=== PATIENT | female | born 1945 | race Caucasian/White ===

== ENCOUNTER 2020-02-11 13:27 | Inpatient (IN) | payer OTHER ==
[2020-02-11 15:33] LABS: BASO % 0.2 % (0-2.0); EOS % 0.3 % (0-4.5); HEMATOCRIT 25.3 % (32.4-45.2); LYMPH % 5.5 % (8-40); MCH 26.8 pg (25.7-33.7); MCHC 31.7 g/dl (32.0-36.0); MEAN CELL VOLUME 84.3 fl (80-96); MEAN PLT VOLUME 7.2 fl (7.5-11.1); MONO % 7.4 % (3.8-10.2); NEUT % 86.6 % (42.8-82.8); PLATELET COUNT 290 K/MM3 (134-434); RDW 16.9 % (11.6-15.6); WHITE BLOOD COUNT 6.1 K/mm3 (4.0-10.0)
[2020-02-11 15:38] LABS: EPI CELLS 4 /uL (0-25.1); HYALINE CASTS 0 /uL (0-3.1); URINE APPEARANCE CLEAR; URINE BACTERIA 177 /uL (0-1359); URINE BILIRUBIN NEGATIVE (NEGATIVE); URINE COLOR YELLOW; URINE GLUCOSE (UA) NEGATIVE (NEGATIVE); URINE KETONE NEGATIVE (NEGATIVE); URINE LEUK ESTERASE NEGATIVE (NEGATIVE); URINE NITRITE NEGATIVE (NEGATIVE); URINE PROTEIN NEGATIVE (NEGATIVE); URINE RBC 28 /uL (0-23.9); URINE UROBILINOGEN 0.2 mg/dL (0.2-1.0); URINE WBC 3 /uL (0-25.8)
[2020-02-11 15:44] LABS: PROTHROMBIN TIME (PATIENT) 93.4 SEC (9.7-13.0)
[2020-02-11 15:47] LABS: ACTIVATED PTT 56.2 SECONDS (25.2-36.5)
[2020-02-11 15:53] LABS: INR 8.07 (0.83-1.09)
[2020-02-11 16:10] LABS: POTASSIUM 4.6 mmol/L (3.5-5.1)
[2020-02-11 16:13] LABS: ALBUMIN 2.8 g/dl (3.4-5.0); BLOOD UREA NITROGEN 25.5 mg/dL (7-18); CALCIUM 8.6 mg/dL (8.5-10.1)
[2020-02-11 16:17] LABS: CREATININE 0.8 mg/dL (0.55-1.3)
[2020-02-11 16:18] LABS: BILIRUBIN,TOTAL 0.8 mg/dL (0.2-1); TOT PROT 6.4 g/dl (6.4-8.2)
[2020-02-11] MEDS ORDERED: FUROSEMIDE 100 MG/10 ML INJECTABLE VIAL IVPB ONE (16:47)
[2020-02-11] MEDS ORDERED: FUROSEMIDE 40 MG/4 ML INJECTABLE VIAL ONE (17:19)
[2020-02-11] MEDS ORDERED: DOXYCYCLINE HYCLATE 100 MG CAPSULE PO ONE ×2 (18:12→18:46)
[2020-02-11] MEDS: INSULIN SLIDING SCALE (NOVOLOG) 1 VIAL SQ SCH (22:21)
[2020-02-11] MEDS ORDERED: PANTOPRAZOLE SODIUM 40 MG VIAL ONE (22:24)
[2020-02-11] MEDS: PANTOPRAZOLE SODIUM 40 MG VIAL IVPUSH SCH (22:30)
[2020-02-12 06:55] LABS: PROTHROMBIN TIME (PATIENT) 70.4 SEC (9.7-13.0)
[2020-02-12 07:00] LABS: BASO % 0.3 % (0-2.0); EOS % 1.1 % (0-4.5); HEMATOCRIT 23.3 % (32.4-45.2); HEMOGLOBIN 7.5 GM/dL (10.7-15.3); LYMPH % 8.4 % (8-40); MCHC 32.1 g/dl (32.0-36.0); MEAN CELL VOLUME 84.3 fl (80-96); MONO % 8.6 % (3.8-10.2); NEUT % 81.6 % (42.8-82.8); PLATELET COUNT 281 K/MM3 (134-434); RBC 2.77 M/mm3 (3.60-5.2); RDW 16.5 % (11.6-15.6); WHITE BLOOD COUNT 4.2 K/mm3 (4.0-10.0)
[2020-02-12] MEDS: INSULIN SLIDING SCALE (NOVOLOG) 1 VIAL SQ SCH ×4 (07:19→22:15)
[2020-02-12 07:55] LABS: INR 6.03 (0.83-1.09)
[2020-02-12] MEDS ORDERED: DIGOXIN 0.125 MG TABLET (FP) ONE (09:42)
[2020-02-12] MEDS ORDERED: FOLIC ACID 1 MG TABLET (FP) ONE (09:42)
[2020-02-12] MEDS ORDERED: FERROUS SO4 325 MG TABLET (FP) ONE (09:42)
[2020-02-12] MEDS ORDERED: PANTOPRAZOLE SODIUM 40 MG VIAL ONE (09:43)
[2020-02-12] MEDS: FOLIC ACID 1 MG TABLET (FP) PO SCH (10:00)
[2020-02-12] MEDS ORDERED: VALSARTAN 160 MG TABLET PO SCH (10:00)
[2020-02-12] MEDS: METHIMAZOLE 5 MG TABLET (FP) PO SCH (10:00)
[2020-02-12] MEDS: PANTOPRAZOLE SODIUM 40 MG VIAL IVPUSH SCH (10:00)
[2020-02-12] MEDS: CYANOCOBALAMIN 1,000 MCG TABLET (FP) PO SCH (10:00)
[2020-02-12] MEDS: VERAPAMIL HCL 240 MG E.R. TABLET PO SCH ×2 (10:00→22:12)
[2020-02-12] MEDS ORDERED: SPIRONOLACTONE 25 MG TABLET PO SCH (10:00)
[2020-02-12] MEDS: DIGOXIN 0.125 MG TABLET (FP) PO SCH (10:00)
[2020-02-12] MEDS: FERROUS SO4 325 MG TABLET (FP) PO SCH (10:00)
[2020-02-12 10:10] LABS: POTASSIUM 3.9 mmol/L (3.5-5.1)
[2020-02-12 10:27] LABS: CALCIUM 8.5 mg/dL (8.5-10.1)
[2020-02-12 10:28] LABS: BLOOD UREA NITROGEN 22.2 mg/dL (7-18)
[2020-02-12 10:31] LABS: CREATININE 0.7 mg/dL (0.55-1.3)
[2020-02-12] MEDS: FUROSEMIDE 40 MG/4 ML INJECTABLE VIAL IVPUSH SCH (11:59)
[2020-02-12] MEDS ORDERED: FLU VACCINE (FLULAVAL) PF 60 MCG/0.5 ML SYRINGE 2020-2021 IM ONE (14:00)
[2020-02-12] MEDS ORDERED: INSULIN (NOVOLOG) ASPART 100 UNITS/ML 10ML VIAL ONE (22:07)
[2020-02-12] MEDS: CYCLOBENZAPRINE HCL 5 MG TABLET PO SCH (22:12)
[2020-02-12] MEDS: ATORVASTATIN CA 10 MG TABLET (FP) PO SCH (22:12)
[2020-02-12 22:37] LABS: PROTHROMBIN TIME (PATIENT) 62.3 SEC (9.7-13.0)
[2020-02-12 22:40] LABS: INR 5.44 (0.83-1.09)
[2020-02-13] MEDS: INSULIN SLIDING SCALE (NOVOLOG) 1 VIAL SQ SCH ×4 (06:30→21:10)
[2020-02-13 07:13] LABS: PROTHROMBIN TIME (PATIENT) 63.6 SEC (9.7-13.0)
[2020-02-13 07:46] LABS: BASO % 0.3 % (0-2.0); BLOOD UREA NITROGEN 22.7 mg/dL (7-18); CALCIUM 8.2 mg/dL (8.5-10.1); CREATININE 0.8 mg/dL (0.55-1.3); EOS % 0.8 % (0-4.5); HEMATOCRIT 25.3 % (32.4-45.2); HEMOGLOBIN 8.3 GM/dL (10.7-15.3); LYMPH % 6.1 % (8-40); MAGNESIUM 1.8 mg/dL (1.8-2.4); MCH 27.3 pg (25.7-33.7); MCHC 32.8 g/dl (32.0-36.0); MEAN CELL VOLUME 83.5 fl (80-96); MEAN PLT VOLUME 7.1 fl (7.5-11.1); MONO % 6.1 % (3.8-10.2); NEUT % 86.7 % (42.8-82.8); PHOSPHOROUS 3.1 mg/dL (2.5-4.9); PLATELET COUNT 270 K/MM3 (134-434); RBC 3.03 M/mm3 (3.60-5.2); RDW 16.6 % (11.6-15.6); WHITE BLOOD COUNT 5.5 K/mm3 (4.0-10.0)
[2020-02-13 08:12] LABS: INR 5.52 (0.83-1.09)
[2020-02-13 08:15] LABS: ACTIVATED PTT 50.7 SECONDS (25.2-36.5)
[2020-02-13] MEDS ORDERED: PT OWN MED DRAWER 7, Y5N ONE (09:01)
[2020-02-13] MEDS: FUROSEMIDE 40 MG/4 ML INJECTABLE VIAL IVPUSH SCH (09:29)
[2020-02-13] MEDS: FERROUS SO4 325 MG TABLET (FP) PO SCH (09:29)
[2020-02-13] MEDS: VERAPAMIL HCL 240 MG E.R. TABLET PO SCH ×2 (09:29→21:14)
[2020-02-13] MEDS: PANTOPRAZOLE 40 MG TABLET PO SCH (09:29)
[2020-02-13] MEDS: FOLIC ACID 1 MG TABLET (FP) PO SCH (09:29)
[2020-02-13] MEDS: METHIMAZOLE 5 MG TABLET (FP) PO SCH (09:30)
[2020-02-13] MEDS: CYANOCOBALAMIN 1,000 MCG TABLET (FP) PO SCH (09:30)
[2020-02-13] MEDS: DIGOXIN 0.125 MG TABLET (FP) PO SCH ×2 (09:32→13:42)
[2020-02-13] MEDS ORDERED: MAGNESIUM SULF 50% (8.12 MEQ/2 ML-1 GM VIAL) IVPB ONE (10:06)
[2020-02-13 20:21] LABS: BASO % 0.3 % (0-2.0); EOS % 0.5 % (0-4.5); HEMATOCRIT 26.3 % (32.4-45.2); HEMOGLOBIN 8.5 GM/dL (10.7-15.3); LYMPH % 6.8 % (8-40); MCH 27.5 pg (25.7-33.7); MCHC 32.5 g/dl (32.0-36.0); MEAN CELL VOLUME 84.4 fl (80-96); MEAN PLT VOLUME 7.3 fl (7.5-11.1); MONO % 7.9 % (3.8-10.2); NEUT % 84.5 % (42.8-82.8); PLATELET COUNT 316 K/MM3 (134-434); RBC 3.11 M/mm3 (3.60-5.2); RDW 16.5 % (11.6-15.6)
[2020-02-13] MEDS: ATORVASTATIN CA 10 MG TABLET (FP) PO SCH (21:14)
[2020-02-13] MEDS: CYCLOBENZAPRINE HCL 5 MG TABLET PO SCH (21:14)
[2020-02-13 21:47] LABS: PROTHROMBIN TIME (PATIENT) 75.6 SEC (9.7-13.0)
[2020-02-13 21:50] LABS: ACTIVATED PTT 51.4 SECONDS (25.2-36.5)
[2020-02-13 21:58] LABS: INR 6.49 (0.83-1.09)
[2020-02-14] MEDS: INSULIN SLIDING SCALE (NOVOLOG) 1 VIAL SQ SCH ×4 (06:48→21:50)
[2020-02-14 07:43] LABS: BASO % 0.2 % (0-2.0); EOS % 0.9 % (0-4.5); HEMATOCRIT 26.5 % (32.4-45.2); HEMOGLOBIN 8.6 GM/dL (10.7-15.3); LYMPH % 7.4 % (8-40); MCH 27.6 pg (25.7-33.7); MCHC 32.5 g/dl (32.0-36.0); MEAN CELL VOLUME 84.9 fl (80-96); MEAN PLT VOLUME 7.1 fl (7.5-11.1); NEUT % 83.5 % (42.8-82.8); PLATELET COUNT 295 K/MM3 (134-434); RBC 3.13 M/mm3 (3.60-5.2); RDW 16.6 % (11.6-15.6); WHITE BLOOD COUNT 5.5 K/mm3 (4.0-10.0)
[2020-02-14 07:55] LABS: POTASSIUM 4.2 mmol/L (3.5-5.1)
[2020-02-14 07:58] LABS: BLOOD UREA NITROGEN 27.7 mg/dL (7-18); CALCIUM 8.3 mg/dL (8.5-10.1); MAGNESIUM 2.2 mg/dL (1.8-2.4)
[2020-02-14 08:01] LABS: CREATININE 0.8 mg/dL (0.55-1.3)
[2020-02-14 08:02] LABS: PHOSPHOROUS 2.6 mg/dL (2.5-4.9)
[2020-02-14] MEDS: FUROSEMIDE 40 MG/4 ML INJECTABLE VIAL IVPUSH SCH (09:11)
[2020-02-14] MEDS: CYANOCOBALAMIN 1,000 MCG TABLET (FP) PO SCH (09:11)
[2020-02-14] MEDS: FERROUS SO4 325 MG TABLET (FP) PO SCH (09:12)
[2020-02-14] MEDS: PANTOPRAZOLE 40 MG TABLET PO SCH (09:12)
[2020-02-14] MEDS: DIGOXIN 0.125 MG TABLET (FP) PO SCH (09:12)
[2020-02-14] MEDS: VERAPAMIL HCL 240 MG E.R. TABLET PO SCH ×2 (09:12→21:46)
[2020-02-14] MEDS: METHIMAZOLE 5 MG TABLET (FP) PO SCH (09:14)
[2020-02-14] MEDS: FOLIC ACID 1 MG TABLET (FP) PO SCH (09:14)
[2020-02-14 09:19] LABS: INR 3.96 (0.83-1.09)
[2020-02-14] MEDS ORDERED: MAGNESIUM OXIDE 400 MG TABLET (FP) PO ONE (10:13)
[2020-02-14] MEDS: CYCLOBENZAPRINE HCL 5 MG TABLET PO SCH (21:46)
[2020-02-14] MEDS: ATORVASTATIN CA 10 MG TABLET (FP) PO SCH (21:46)
[2020-02-15] MEDS: INSULIN SLIDING SCALE (NOVOLOG) 1 VIAL SQ SCH ×4 (06:13→21:40)
[2020-02-15 07:19] LABS: BASO % 0.3 % (0-2.0); EOS % 0.5 % (0-4.5); HEMATOCRIT 27.2 % (32.4-45.2); HEMOGLOBIN 8.7 GM/dL (10.7-15.3); LYMPH % 8.6 % (8-40); MCH 26.6 pg (25.7-33.7); MEAN CELL VOLUME 83.2 fl (80-96); MEAN PLT VOLUME 6.8 fl (7.5-11.1); MONO % 6.7 % (3.8-10.2); NEUT % 83.9 % (42.8-82.8); PLATELET COUNT 306 K/MM3 (134-434); RBC 3.27 M/mm3 (3.60-5.2); RDW 16.4 % (11.6-15.6)
[2020-02-15 07:32] LABS: INR 2.45 (0.83-1.09); PROTHROMBIN TIME (PATIENT) 28.9 SEC (9.7-13.0)
[2020-02-15 07:34] LABS: ACTIVATED PTT 38.4 SECONDS (25.2-36.5)
[2020-02-15 07:52] LABS: ALBUMIN 2.6 g/dl (3.4-5.0); BLOOD UREA NITROGEN 28.9 mg/dL (7-18); CALCIUM 8.2 mg/dL (8.5-10.1)
[2020-02-15 07:55] LABS: CREATININE 0.9 mg/dL (0.55-1.3)
[2020-02-15 07:56] LABS: BILIRUBIN,TOTAL 0.5 mg/dL (0.2-1); TOT PROT 6.3 g/dl (6.4-8.2)
[2020-02-15] MEDS ORDERED: PT OWN MED DRAWER 7, Y5N ONE (09:12)
[2020-02-15] MEDS: DIGOXIN 0.125 MG TABLET (FP) PO SCH (09:17)
[2020-02-15] MEDS: CYANOCOBALAMIN 1,000 MCG TABLET (FP) PO SCH (09:17)
[2020-02-15] MEDS: VERAPAMIL HCL 240 MG E.R. TABLET PO SCH ×2 (09:18→21:39)
[2020-02-15] MEDS: FERROUS SO4 325 MG TABLET (FP) PO SCH (09:18)
[2020-02-15] MEDS: PANTOPRAZOLE 40 MG TABLET PO SCH (09:18)
[2020-02-15] MEDS: FUROSEMIDE 40 MG/4 ML INJECTABLE VIAL IVPUSH SCH (09:19)
[2020-02-15] MEDS: FOLIC ACID 1 MG TABLET (FP) PO SCH (09:19)
[2020-02-15] MEDS: ENOXAPARIN NA (PORCINE) 80 MG/0.8 ML DISP.SYRIN SQ SCH ×2 (09:19→21:39)
[2020-02-15] MEDS: METHIMAZOLE 5 MG TABLET (FP) PO SCH (09:19)
[2020-02-15] MEDS: POLYETHYLENE GLYCOL 3350 119 GM BTL PO SCH (11:46)
[2020-02-15] MEDS: CYCLOBENZAPRINE HCL 5 MG TABLET PO SCH (21:39)
[2020-02-15] MEDS: ATORVASTATIN CA 10 MG TABLET (FP) PO SCH (21:39)
[2020-02-16] MEDS: INSULIN SLIDING SCALE (NOVOLOG) 1 VIAL SQ SCH ×4 (06:27→21:48)
[2020-02-16 07:18] LABS: HEMATOCRIT 24.8 % (32.4-45.2); MCHC 32.4 g/dl (32.0-36.0); MEAN CELL VOLUME 83.5 fl (80-96); PLATELET COUNT 272 K/MM3 (134-434); RBC 2.97 M/mm3 (3.60-5.2); RDW 16.6 % (11.6-15.6); WHITE BLOOD COUNT 4.9 K/mm3 (4.0-10.0)
[2020-02-16 07:30] LABS: INR 1.92 (0.83-1.09); PROTHROMBIN TIME (PATIENT) 23.2 SEC (9.7-13.0)
[2020-02-16 07:32] LABS: ACTIVATED PTT 37.8 SECONDS (25.2-36.5)
[2020-02-16 07:36] LABS: POTASSIUM 4.4 mmol/L (3.5-5.1)
[2020-02-16 07:38] LABS: CALCIUM 8.5 mg/dL (8.5-10.1)
[2020-02-16 07:39] LABS: ALBUMIN 2.5 g/dl (3.4-5.0); BLOOD UREA NITROGEN 28.8 mg/dL (7-18)
[2020-02-16 07:41] LABS: MAGNESIUM 2.3 mg/dL (1.8-2.4)
[2020-02-16 07:42] LABS: CREATININE 0.8 mg/dL (0.55-1.3)
[2020-02-16 07:44] LABS: BILIRUBIN,TOTAL 0.6 mg/dL (0.2-1)
[2020-02-16 07:46] LABS: PHOSPHOROUS 2.8 mg/dL (2.5-4.9)
[2020-02-16] MEDS ORDERED: PT OWN MED DRAWER 7, Y5N ONE (09:25)
[2020-02-16] MEDS ORDERED: MELATONIN 5 MG TABLETS PO PRN (09:35)
[2020-02-16] MEDS: DIGOXIN 0.125 MG TABLET (FP) PO SCH (09:49)
[2020-02-16] MEDS: CYANOCOBALAMIN 1,000 MCG TABLET (FP) PO SCH (09:49)
[2020-02-16] MEDS: POLYETHYLENE GLYCOL 3350 119 GM BTL PO SCH (09:50)
[2020-02-16] MEDS: PANTOPRAZOLE 40 MG TABLET PO SCH (09:50)
[2020-02-16] MEDS: VERAPAMIL HCL 240 MG E.R. TABLET PO SCH ×2 (09:50→21:44)
[2020-02-16] MEDS: ENOXAPARIN NA (PORCINE) 80 MG/0.8 ML DISP.SYRIN SQ SCH ×2 (09:50→21:45)
[2020-02-16] MEDS: FERROUS SO4 325 MG TABLET (FP) PO SCH (09:50)
[2020-02-16] MEDS: METHIMAZOLE 5 MG TABLET (FP) PO SCH (09:51)
[2020-02-16] MEDS: FUROSEMIDE 40 MG/4 ML INJECTABLE VIAL IVPUSH SCH (09:51)
[2020-02-16] MEDS: FOLIC ACID 1 MG TABLET (FP) PO SCH (10:01)
[2020-02-16] MEDS: CYCLOBENZAPRINE HCL 5 MG TABLET PO SCH (21:45)
[2020-02-16] MEDS: ATORVASTATIN CA 10 MG TABLET (FP) PO SCH (21:45)
[2020-02-17] MEDS: INSULIN SLIDING SCALE (NOVOLOG) 1 VIAL SQ SCH ×4 (06:27→22:14)
[2020-02-17 06:59] LABS: BASO % 0.3 % (0-2.0); EOS % 0.6 % (0-4.5); HEMATOCRIT 25.1 % (32.4-45.2); HEMOGLOBIN 7.9 GM/dL (10.7-15.3); LYMPH % 7.6 % (8-40); MCH 26.3 pg (25.7-33.7); MCHC 31.6 g/dl (32.0-36.0); MEAN CELL VOLUME 83.1 fl (80-96); MEAN PLT VOLUME 7.1 fl (7.5-11.1); MONO % 8.3 % (3.8-10.2); NEUT % 83.2 % (42.8-82.8); PLATELET COUNT 255 K/MM3 (134-434); RBC 3.02 M/mm3 (3.60-5.2); RDW 16.5 % (11.6-15.6); WHITE BLOOD COUNT 4.7 K/mm3 (4.0-10.0)
[2020-02-17 07:35] LABS: INR 1.72 (0.83-1.09); PROTHROMBIN TIME (PATIENT) 20.5 SEC (9.7-13.0)
[2020-02-17 07:36] LABS: CALCIUM 8.3 mg/dL (8.5-10.1)
[2020-02-17 07:37] LABS: ALBUMIN 2.3 g/dl (3.4-5.0); BLOOD UREA NITROGEN 23.6 mg/dL (7-18); MAGNESIUM 2.1 mg/dL (1.8-2.4)
[2020-02-17 07:40] LABS: CREATININE 0.8 mg/dL (0.55-1.3)
[2020-02-17 07:41] LABS: TOT PROT 5.8 g/dl (6.4-8.2)
[2020-02-17 07:44] LABS: BILIRUBIN,TOTAL 0.6 mg/dL (0.2-1)
[2020-02-17] MEDS ORDERED: PT OWN MED DRAWER 7, Y5N ONE (09:11)
[2020-02-17] MEDS: ENOXAPARIN NA (PORCINE) 80 MG/0.8 ML DISP.SYRIN SQ SCH ×2 (09:41→22:14)
[2020-02-17] MEDS: POLYETHYLENE GLYCOL 3350 119 GM BTL PO SCH (09:41)
[2020-02-17] MEDS: METHIMAZOLE 5 MG TABLET (FP) PO SCH (09:43)
[2020-02-17] MEDS: DOCUSATE SODIUM 100 MG CAPSULE (FP) PO SCH ×2 (09:43→22:09)
[2020-02-17] MEDS: PANTOPRAZOLE 40 MG TABLET PO SCH (09:43)
[2020-02-17] MEDS: CYANOCOBALAMIN 1,000 MCG TABLET (FP) PO SCH (09:43)
[2020-02-17] MEDS: DIGOXIN 0.125 MG TABLET (FP) PO SCH (09:45)
[2020-02-17] MEDS: FOLIC ACID 1 MG TABLET (FP) PO SCH (09:45)
[2020-02-17] MEDS: FERROUS SO4 325 MG TABLET (FP) PO SCH (09:45)
[2020-02-17] MEDS: FUROSEMIDE 40 MG/4 ML INJECTABLE VIAL IVPUSH SCH (09:45)
[2020-02-17] MEDS: VERAPAMIL HCL 240 MG E.R. TABLET PO SCH ×2 (09:45→22:09)
[2020-02-17] MEDS ORDERED: INSULIN (NOVOLOG) ASPART 100 UNITS/ML 10ML VIAL ONE (22:01)
[2020-02-17] MEDS: ATORVASTATIN CA 10 MG TABLET (FP) PO SCH (22:09)
[2020-02-17] MEDS: CYCLOBENZAPRINE HCL 5 MG TABLET PO SCH (22:09)
[2020-02-18] MEDS: INSULIN SLIDING SCALE (NOVOLOG) 1 VIAL SQ SCH ×4 (06:19→21:49)
[2020-02-18 07:34] LABS: BASO % 0.2 % (0-2.0); EOS % 0.4 % (0-4.5); HEMATOCRIT 27.7 % (32.4-45.2); HEMOGLOBIN 8.7 GM/dL (10.7-15.3); LYMPH % 12.2 % (8-40); MCH 26.4 pg (25.7-33.7); MCHC 31.4 g/dl (32.0-36.0); MEAN CELL VOLUME 84.1 fl (80-96); MEAN PLT VOLUME 7.5 fl (7.5-11.1); MONO % 8.1 % (3.8-10.2); NEUT % 79.1 % (42.8-82.8); PLATELET COUNT 303 K/MM3 (134-434); RBC 3.29 M/mm3 (3.60-5.2); RDW 16.6 % (11.6-15.6); WHITE BLOOD COUNT 6.1 K/mm3 (4.0-10.0)
[2020-02-18 07:46] LABS: INR 1.41 (0.83-1.09); PROTHROMBIN TIME (PATIENT) 17.2 SEC (9.7-13.0)
[2020-02-18 08:14] LABS: BLOOD UREA NITROGEN 20.4 mg/dL (7-18)
[2020-02-18 08:18] LABS: CREATININE 0.8 mg/dL (0.55-1.3)
[2020-02-18 08:37] LABS: CALCIUM 8.7 mg/dL (8.5-10.1)
[2020-02-18] MEDS ORDERED: PT OWN MED DRAWER 7, Y5N ONE (08:58)
[2020-02-18] MEDS: FERROUS SO4 325 MG TABLET (FP) PO SCH (09:39)
[2020-02-18] MEDS: PANTOPRAZOLE 40 MG TABLET PO SCH (09:39)
[2020-02-18] MEDS: VERAPAMIL HCL 240 MG E.R. TABLET PO SCH ×2 (09:39→21:43)
[2020-02-18] MEDS: METHIMAZOLE 5 MG TABLET (FP) PO SCH (09:39)
[2020-02-18] MEDS: DOCUSATE SODIUM 100 MG CAPSULE (FP) PO SCH ×2 (09:39→21:44)
[2020-02-18] MEDS: DIGOXIN 0.125 MG TABLET (FP) PO SCH (09:40)
[2020-02-18] MEDS: CYANOCOBALAMIN 1,000 MCG TABLET (FP) PO SCH (09:40)
[2020-02-18] MEDS: FOLIC ACID 1 MG TABLET (FP) PO SCH (09:40)
[2020-02-18] MEDS: FUROSEMIDE 40 MG/4 ML INJECTABLE VIAL IVPUSH SCH (09:41)
[2020-02-18] MEDS: POLYETHYLENE GLYCOL 3350 119 GM BTL PO SCH (09:53)
[2020-02-18 13:42] LABS: TOT PROT 6.3 g/dl (6.4-8.2)
[2020-02-18 13:56] LABS: BF WBC & OTHER NUCLEATED CELLS 108 /mm3
[2020-02-18 16:03] LABS: BODY FLUID MACROPHAGES 63 %
[2020-02-18] MEDS ORDERED: WARFARIN NA 5 MG TABLET PO ONE (18:00)
[2020-02-18] MEDS: ATORVASTATIN CA 10 MG TABLET (FP) PO SCH (21:43)
[2020-02-18] MEDS: ENOXAPARIN NA (PORCINE) 80 MG/0.8 ML DISP.SYRIN SQ SCH (21:43)
[2020-02-18] MEDS: CYCLOBENZAPRINE HCL 5 MG TABLET PO SCH (21:44)
[2020-02-19 06:51] LABS: BASO % 0.3 % (0-2.0); EOS % 0.7 % (0-4.5); HEMATOCRIT 24.6 % (32.4-45.2); HEMOGLOBIN 7.8 GM/dL (10.7-15.3); LYMPH % 11.2 % (8-40); MCH 26.5 pg (25.7-33.7); MCHC 31.6 g/dl (32.0-36.0); MEAN CELL VOLUME 83.9 fl (80-96); MEAN PLT VOLUME 7.4 fl (7.5-11.1); MONO % 8.3 % (3.8-10.2); NEUT % 79.5 % (42.8-82.8); PLATELET COUNT 213 K/MM3 (134-434); RBC 2.93 M/mm3 (3.60-5.2); RDW 16.6 % (11.6-15.6); WHITE BLOOD COUNT 4.2 K/mm3 (4.0-10.0)
[2020-02-19] MEDS: INSULIN SLIDING SCALE (NOVOLOG) 1 VIAL SQ SCH ×4 (06:54→21:11)
[2020-02-19 07:11] LABS: INR 1.33 (0.83-1.09)
[2020-02-19 07:14] LABS: POTASSIUM 4.3 mmol/L (3.5-5.1)
[2020-02-19 07:41] LABS: BLOOD UREA NITROGEN 17.2 mg/dL (7-18)
[2020-02-19 07:43] LABS: CALCIUM 8.4 mg/dL (8.5-10.1)
[2020-02-19 07:47] LABS: CREATININE 0.7 mg/dL (0.55-1.3)
[2020-02-19] MEDS: CYANOCOBALAMIN 1,000 MCG TABLET (FP) PO SCH (09:10)
[2020-02-19] MEDS: FERROUS SO4 325 MG TABLET (FP) PO SCH (09:10)
[2020-02-19] MEDS: VERAPAMIL HCL 240 MG E.R. TABLET PO SCH ×2 (09:10→21:12)
[2020-02-19] MEDS: DIGOXIN 0.125 MG TABLET (FP) PO SCH (09:11)
[2020-02-19] MEDS: PANTOPRAZOLE 40 MG TABLET PO SCH (09:11)
[2020-02-19] MEDS: DOCUSATE SODIUM 100 MG CAPSULE (FP) PO SCH ×2 (09:11→21:12)
[2020-02-19] MEDS: FOLIC ACID 1 MG TABLET (FP) PO SCH (09:11)
[2020-02-19] MEDS: FUROSEMIDE 40 MG/4 ML INJECTABLE VIAL IVPUSH SCH (09:11)
[2020-02-19] MEDS: ENOXAPARIN NA (PORCINE) 80 MG/0.8 ML DISP.SYRIN SQ SCH ×2 (09:11→21:12)
[2020-02-19] MEDS ORDERED: INSULIN (NOVOLOG) ASPART 100 UNITS/ML 10ML VIAL ONE (09:21)
[2020-02-19] MEDS ORDERED: INSULIN (LEVEMIR) 100 UNITS/ML UNITS SQ ONE (09:21)
[2020-02-19] MEDS ORDERED: PT OWN MED DRAWER 7, Y5N ONE (09:21)
[2020-02-19] MEDS: POLYETHYLENE GLYCOL 3350 119 GM BTL PO SCH (09:23)
[2020-02-19] MEDS: METHIMAZOLE 5 MG TABLET (FP) PO SCH (09:23)
[2020-02-19 17:28] LABS: BODY FLUID ALBUMIN 2.5 g/dL (Not Estab.)
[2020-02-19] MEDS ORDERED: WARFARIN NA 5 MG TABLET PO ONE (18:00)
[2020-02-19] MEDS: CYCLOBENZAPRINE HCL 5 MG TABLET PO SCH (21:12)
[2020-02-19] MEDS: ATORVASTATIN CA 10 MG TABLET (FP) PO SCH (21:12)
[2020-02-20] MEDS: INSULIN SLIDING SCALE (NOVOLOG) 1 VIAL SQ SCH ×4 (06:46→21:37)
[2020-02-20 07:04] LABS: BASO % 0.1 % (0-2.0); EOS % 0.4 % (0-4.5); HEMOGLOBIN 8.3 GM/dL (10.7-15.3); LYMPH % 10.9 % (8-40); MCH 26.9 pg (25.7-33.7); MEAN PLT VOLUME 7.1 fl (7.5-11.1); MONO % 7.4 % (3.8-10.2); NEUT % 81.2 % (42.8-82.8); PLATELET COUNT 236 K/MM3 (134-434); RDW 16.6 % (11.6-15.6); WHITE BLOOD COUNT 4.8 K/mm3 (4.0-10.0)
[2020-02-20 07:10] LABS: INR 1.53 (0.83-1.09); PROTHROMBIN TIME (PATIENT) 18.6 SEC (9.7-13.0)
[2020-02-20 07:47] LABS: BLOOD UREA NITROGEN 15.6 mg/dL (7-18); CALCIUM 8.4 mg/dL (8.5-10.1)
[2020-02-20 07:53] LABS: CREATININE 0.8 mg/dL (0.55-1.3)
[2020-02-20] MEDS: FERROUS SO4 325 MG TABLET (FP) PO SCH (09:21)
[2020-02-20] MEDS: FOLIC ACID 1 MG TABLET (FP) PO SCH (09:21)
[2020-02-20] MEDS: CYANOCOBALAMIN 1,000 MCG TABLET (FP) PO SCH (09:21)
[2020-02-20] MEDS: VERAPAMIL HCL 240 MG E.R. TABLET PO SCH ×2 (09:21→21:37)
[2020-02-20] MEDS: FUROSEMIDE 40 MG TABLET (FP) PO SCH (09:21)
[2020-02-20] MEDS: DOCUSATE SODIUM 100 MG CAPSULE (FP) PO SCH ×2 (09:21→21:39)
[2020-02-20] MEDS: PANTOPRAZOLE 40 MG TABLET PO SCH (09:22)
[2020-02-20] MEDS ORDERED: PT OWN MED DRAWER 7, Y5N ONE (09:24)
[2020-02-20] MEDS: METHIMAZOLE 5 MG TABLET (FP) PO SCH (09:25)
[2020-02-20] MEDS: POLYETHYLENE GLYCOL 3350 119 GM BTL PO SCH (09:25)
[2020-02-20] MEDS: ENOXAPARIN NA (PORCINE) 80 MG/0.8 ML DISP.SYRIN SQ SCH ×2 (09:25→21:39)
[2020-02-20 13:16] VITALS: BMI 32.8
[2020-02-20] MEDS ORDERED: WARFARIN NA 5 MG TABLET PO ONE (20:56)
[2020-02-20] MEDS: ATORVASTATIN CA 10 MG TABLET (FP) PO SCH (21:36)
[2020-02-20] MEDS: CYCLOBENZAPRINE HCL 5 MG TABLET PO SCH (21:37)
[2020-02-21] MEDS: INSULIN SLIDING SCALE (NOVOLOG) 1 VIAL SQ SCH ×4 (06:48→21:25)
[2020-02-21 07:28] LABS: BASO % 0.2 % (0-2.0); EOS % 0.7 % (0-4.5); HEMATOCRIT 24.2 % (32.4-45.2); HEMOGLOBIN 7.8 GM/dL (10.7-15.3); LYMPH % 10.1 % (8-40); MCH 26.7 pg (25.7-33.7); MEAN CELL VOLUME 83.3 fl (80-96); MEAN PLT VOLUME 7.7 fl (7.5-11.1); MONO % 8.2 % (3.8-10.2); NEUT % 80.8 % (42.8-82.8); PLATELET COUNT 210 K/MM3 (134-434); RBC 2.91 M/mm3 (3.60-5.2); RDW 16.7 % (11.6-15.6); WHITE BLOOD COUNT 4.1 K/mm3 (4.0-10.0)
[2020-02-21 07:29] LABS: INR 1.89 (0.83-1.09); PROTHROMBIN TIME (PATIENT) 22.5 SEC (9.7-13.0)
[2020-02-21 08:31] LABS: POTASSIUM 3.9 mmol/L (3.5-5.1)
[2020-02-21 08:33] LABS: CALCIUM 8.2 mg/dL (8.5-10.1); MAGNESIUM 2.1 mg/dL (1.8-2.4)
[2020-02-21 08:34] LABS: BLOOD UREA NITROGEN 16.4 mg/dL (7-18)
[2020-02-21 08:36] LABS: CREATININE 0.8 mg/dL (0.55-1.3)
[2020-02-21] MEDS: CYANOCOBALAMIN 1,000 MCG TABLET (FP) PO SCH (09:51)
[2020-02-21] MEDS: DOCUSATE SODIUM 100 MG CAPSULE (FP) PO SCH ×2 (09:51→21:23)
[2020-02-21] MEDS: FERROUS SO4 325 MG TABLET (FP) PO SCH (09:51)
[2020-02-21] MEDS: FOLIC ACID 1 MG TABLET (FP) PO SCH (09:52)
[2020-02-21] MEDS: VERAPAMIL HCL 240 MG E.R. TABLET PO SCH ×2 (09:52→21:22)
[2020-02-21] MEDS: FUROSEMIDE 40 MG TABLET (FP) PO SCH (09:52)
[2020-02-21] MEDS: ENOXAPARIN NA (PORCINE) 80 MG/0.8 ML DISP.SYRIN SQ SCH ×2 (09:52→21:23)
[2020-02-21] MEDS: ASCORBIC ACID 500 MG TABLET (FP) PO SCH (09:52)
[2020-02-21] MEDS: POLYETHYLENE GLYCOL 3350 119 GM BTL PO SCH (09:53)
[2020-02-21] MEDS: METHIMAZOLE 5 MG TABLET (FP) PO SCH (09:53)
[2020-02-21] MEDS: PANTOPRAZOLE 40 MG TABLET PO SCH (09:53)
[2020-02-21] MEDS ORDERED: WARFARIN NA 3 MG TABLET PO ONE (18:00)
[2020-02-21] MEDS ORDERED: WARFARIN NA 5 MG TABLET PO ONE (18:00)
[2020-02-21] MEDS: ATORVASTATIN CA 10 MG TABLET (FP) PO SCH (21:22)
[2020-02-21] MEDS: CYCLOBENZAPRINE HCL 5 MG TABLET PO SCH (21:22)
[2020-02-22] MEDS: INSULIN SLIDING SCALE (NOVOLOG) 1 VIAL SQ SCH ×2 (06:18→11:22)
[2020-02-22 06:53] LABS: BASO % 0.3 % (0-2.0); EOS % 0.5 % (0-4.5); HEMATOCRIT 25.4 % (32.4-45.2); LYMPH % 10.9 % (8-40); MCH 26.4 pg (25.7-33.7); MCHC 31.5 g/dl (32.0-36.0); MEAN CELL VOLUME 83.9 fl (80-96); MEAN PLT VOLUME 7.5 fl (7.5-11.1); MONO % 8.5 % (3.8-10.2); NEUT % 79.8 % (42.8-82.8); PLATELET COUNT 203 K/MM3 (134-434); RBC 3.02 M/mm3 (3.60-5.2); RDW 17.1 % (11.6-15.6); WHITE BLOOD COUNT 4.3 K/mm3 (4.0-10.0)
[2020-02-22 07:12] LABS: INR 2.55 (0.83-1.09); PROTHROMBIN TIME (PATIENT) 30.5 SEC (9.7-13.0)
[2020-02-22 07:31] LABS: POTASSIUM 4.1 mmol/L (3.5-5.1)
[2020-02-22 07:37] LABS: BLOOD UREA NITROGEN 17.8 mg/dL (7-18)
[2020-02-22 07:40] LABS: CREATININE 0.8 mg/dL (0.55-1.3)
[2020-02-22] MEDS ORDERED: PT OWN MED DRAWER 7, Y5N ONE (09:05)
[2020-02-22] MEDS: FOLIC ACID 1 MG TABLET (FP) PO SCH (09:36)
[2020-02-22] MEDS: VERAPAMIL HCL 240 MG E.R. TABLET PO SCH (09:36)
[2020-02-22] MEDS: ASCORBIC ACID 500 MG TABLET (FP) PO SCH (09:36)
[2020-02-22] MEDS: FUROSEMIDE 40 MG TABLET (FP) PO SCH (09:36)
[2020-02-22] MEDS: PANTOPRAZOLE 40 MG TABLET PO SCH (09:36)
[2020-02-22] MEDS: FERROUS SO4 325 MG TABLET (FP) PO SCH (09:36)
[2020-02-22] MEDS: ENOXAPARIN NA (PORCINE) 80 MG/0.8 ML DISP.SYRIN SQ SCH ×2 (09:37→09:40)
[2020-02-22] MEDS: DOCUSATE SODIUM 100 MG CAPSULE (FP) PO SCH (09:37)
[2020-02-22] MEDS: CYANOCOBALAMIN 1,000 MCG TABLET (FP) PO SCH (09:37)
[2020-02-22] MEDS: METHIMAZOLE 5 MG TABLET (FP) PO SCH (09:38)
[2020-02-22] MEDS: POLYETHYLENE GLYCOL 3350 119 GM BTL PO SCH (09:38)
[2020-02-22 10:08] VITALS: BP 147/51; PULSE 72; TEMP 98.1
== END 2020-02-22 12:38 | disposition home or self-care (01) | DRG 813 ==
LOC: JER 13:27 → JERBED 16:09 → J4W 02-12 11:31
PROC: 0W993ZX Drainage of Right Pleural Cavity, Percutaneous Approach, Diagnostic (ICD-10-PCS; principal; 2020-02-18)
DX: D68.32 Hemorrhagic disorder due to extrinsic circulating anticoagulants (principal); I50.33 Acute on chronic diastolic (congestive) heart failure; I47.1 Supraventricular tachycardia; D62 Acute posthemorrhagic anemia; J98.11 Atelectasis; J90 Pleural effusion, not elsewhere classified; I11.0 Hypertensive heart disease with heart failure; E78.5 Hyperlipidemia, unspecified; I48.91 Unspecified atrial fibrillation; E11.9 Type 2 diabetes mellitus without complications; E05.90 Thyrotoxicosis, unspecified without thyrotoxic crisis or storm; K21.9 Gastro-esophageal reflux disease without esophagitis; D50.0 Iron deficiency anemia secondary to blood loss (chronic); T45.515A Adverse effect of anticoagulants, initial encounter; J45.909 Unspecified asthma, uncomplicated; I25.10 Atherosclerotic heart disease of native coronary artery without angina pectoris; I27.20 Pulmonary hypertension, unspecified; I87.2 Venous insufficiency (chronic) (peripheral); K76.89 Other specified diseases of liver; R79.1 Abnormal coagulation profile; M35.3 Polymyalgia rheumatica; K74.60 Unspecified cirrhosis of liver; Z95.1 Presence of aortocoronary bypass graft; Z95.2 Presence of prosthetic heart valve; Z85.42 Personal history of malignant neoplasm of other parts of uterus
CPT/HCPCS: 36415; 36430; 71045-TC-FY; 71046-TC-FY; 71250-TC; 76942; 80048; 80053; 80162; 81003; 82042; 82150; 82272; 82465; 82607; 82728; 82746; 82945; 82962; 83540; 83550; 83615; 83735; 83880; 83986; 84100; 84155; 84157; 84443; 84478; 85025; 85027; 85045; 85610; 85730; 86850; 86900; 86901; 86922; 87070; 87075; 87102; 87116; 87205; 87206; 87210; 88108; 88305-TC; 93005; 93010; 99285-25; C9803; G0008; P9058; Q2036; U0003

== ENCOUNTER 2020-03-16 16:37 | Emergency (ER) | payer OTHER | END 2020-03-16 17:07 | disposition home or self-care (01) | LOC: JVIRT 16:37 | DX: U07.1 COVID-19 (principal) | CPT/HCPCS: C9803; Q3014-GT; U0003 ==

== ENCOUNTER 2020-11-10 10:52 | Inpatient (IN) | payer OTHER ==
[2020-11-10 12:28] LABS: BASO % 0.3 % (0-2.0); EOS % 0.1 % (0-4.5); HEMATOCRIT 14.8 % (32.4-45.2); LYMPH % 3.4 % (8-40); MCH 30.5 pg (25.7-33.7); MCHC 32.9 g/dl (32.0-36.0); MEAN CELL VOLUME 92.9 fl (80-96); MEAN PLT VOLUME 7.8 fl (7.5-11.1); MONO % 4.4 % (3.8-10.2); NEUT % 91.8 % (42.8-82.8); PLATELET COUNT 229 10^3/uL (134-434); RDW 19.3 % (11.6-15.6); WHITE BLOOD COUNT 8.5 K/mm3 (4.0-10.0)
[2020-11-10 12:31] LABS: HEMOGLOBIN 4.9 GM/dL (10.7-15.3)
[2020-11-10 12:42] LABS: INR 10.89 (0.83-1.09)
[2020-11-10 12:45] LABS: ALBUMIN 2.5 g/dl (3.4-5.0); BLOOD UREA NITROGEN 53.2 mg/dL (7-18); CALCIUM 7.7 mg/dL (8.5-10.1)
[2020-11-10 12:49] LABS: CREATININE 0.9 mg/dL (0.55-1.3)
[2020-11-10 12:50] LABS: BILIRUBIN,TOTAL 0.4 mg/dL (0.2-1)
[2020-11-10] MEDS ORDERED: HUM PROTHROMBIN CPLX(PCC)4FACT 1,000 UNIT/40 ML VIAL IVPB ONE (12:56)
[2020-11-10 14:08] LABS: PLATELET ESTIMATE NORMAL
[2020-11-10] MEDS ORDERED: PANTOPRAZOLE SODIUM 80 MG in SODIUM CHLORIDE 100 ML IVPB SCH ×3 (14:15→17:15)
[2020-11-10] MEDS ORDERED: PANTOPRAZOLE SODIUM 160 MG in SODIUM CHLORIDE 290 ML IVPB SCH ×3 (14:15→17:15)
[2020-11-10 14:21] LABS: ANISOCYTOSIS 1+
[2020-11-10] MEDS: DEXTROSE 5%-0.45% SALINE 1,000 ML IV SCH (15:53)
[2020-11-10] MEDS: INSULIN SLIDING SCALE (NOVOLOG) 1 VIAL SQ SCH ×2 (17:27→21:26)
[2020-11-10] MEDS ORDERED: FUROSEMIDE 40 MG/4 ML INJECTABLE VIAL IVPUSH ONE ×3 (17:30→21:53)
[2020-11-10] MEDS: PANTOPRAZOLE SODIUM 160 MG in SODIUM CHLORIDE 290 ML IVPB SCH (17:57)
[2020-11-10 18:19] LABS: INR 1.54 (0.83-1.09); PROTHROMBIN TIME (PATIENT) 18.7 SEC (9.7-13.0)
[2020-11-10] MEDS: CHLORHEXIDINE GLUCONATE 4% CLEANSER FOR DECOLONIZATION TP SCH (21:26)
[2020-11-10] MEDS: MUPIROCIN 2% TOPICAL OINTMENT FOR DECOLONIZATION NS SCH (21:27)
[2020-11-10 21:42] LABS: BASO % 0.3 % (0-2.0); HEMOGLOBIN 7.1 GM/dL (10.7-15.3); MCH 31.2 pg (25.7-33.7); MEAN CELL VOLUME 91.6 fl (80-96); MEAN PLT VOLUME 7.3 fl (7.5-11.1); MONO % 9.8 % (3.8-10.2); NEUT % 80.9 % (42.8-82.8); PLATELET COUNT 186 10^3/uL (134-434); RBC 2.29 M/mm3 (3.60-5.2); RDW 16.5 % (11.6-15.6); WHITE BLOOD COUNT 6.9 K/mm3 (4.0-10.0)
[2020-11-11] MEDS ORDERED: FUROSEMIDE 40 MG/4 ML INJECTABLE VIAL ONE (02:06)
[2020-11-11] MEDS: DEXTROSE 5%-0.45% SALINE 1,000 ML IV SCH (02:20)
[2020-11-11 05:59] LABS: INR 2.28 (0.83-1.09); PROTHROMBIN TIME (PATIENT) 27.4 SEC (9.7-13.0)
[2020-11-11 06:00] LABS: HEMATOCRIT 23.1 % (32.4-45.2); MCH 31.5 pg (25.7-33.7); MCHC 34.7 g/dl (32.0-36.0); MEAN CELL VOLUME 90.9 fl (80-96); MEAN PLT VOLUME 7.1 fl (7.5-11.1); PLATELET COUNT 147 10^3/uL (134-434); RBC 2.54 M/mm3 (3.60-5.2); RDW 15.9 % (11.6-15.6)
[2020-11-11 06:01] LABS: ACTIVATED PTT 32.1 SECONDS (25.2-36.5)
[2020-11-11 06:02] LABS: BASO % 0.3 % (0-2.0); EOS % 0.4 % (0-4.5); HEMATOCRIT 23.2 % (32.4-45.2); HEMOGLOBIN 8.1 GM/dL (10.7-15.3); LYMPH % 9.3 % (8-40); MCH 31.8 pg (25.7-33.7); MCHC 34.8 g/dl (32.0-36.0); MEAN CELL VOLUME 91.2 fl (80-96); MEAN PLT VOLUME 7.2 fl (7.5-11.1); MONO % 9.3 % (3.8-10.2); NEUT % 80.7 % (42.8-82.8); PLATELET COUNT 148 10^3/uL (134-434); RBC 2.54 M/mm3 (3.60-5.2); RDW 15.7 % (11.6-15.6); WHITE BLOOD COUNT 5.1 K/mm3 (4.0-10.0)
[2020-11-11 06:17] LABS: CALCIUM 7.4 mg/dL (8.5-10.1)
[2020-11-11 06:18] LABS: ALBUMIN 2.4 g/dl (3.4-5.0); BLOOD UREA NITROGEN 39.3 mg/dL (7-18); MAGNESIUM 2.1 mg/dL (1.8-2.4)
[2020-11-11] MEDS: INSULIN SLIDING SCALE (NOVOLOG) 1 VIAL SQ SCH ×4 (06:20→22:29)
[2020-11-11 06:21] LABS: CREATININE 0.8 mg/dL (0.55-1.3); PHOSPHOROUS 2.9 mg/dL (2.5-4.9)
[2020-11-11 06:22] LABS: BILIRUBIN,TOTAL 1.3 mg/dL (0.2-1)
[2020-11-11 06:23] LABS: TOT PROT 4.8 g/dl (6.4-8.2)
[2020-11-11] MEDS: KCL 10 MEQ IVPB 10 MEQ/100 ML INFUS.BAG IVPB SCH ×3 (09:29→16:00)
[2020-11-11] MEDS: MUPIROCIN 2% TOPICAL OINTMENT FOR DECOLONIZATION NS SCH ×2 (10:00→22:29)
[2020-11-11] MEDS ORDERED: FUROSEMIDE 40 MG/4 ML INJECTABLE VIAL IVPUSH ONE (12:29)
[2020-11-11] MEDS ORDERED: HEPARIN INFUSION - 25,000 UNITS/500 ML INFUS.BAG IVPB SCH (12:45)
[2020-11-11 14:01] LABS: INR 2.46 (0.83-1.09)
[2020-11-11] MEDS: PANTOPRAZOLE SODIUM 160 MG in SODIUM CHLORIDE 290 ML IVPB SCH (14:10)
[2020-11-11] MEDS ORDERED: PHYTONADIONE 10 MG/1 ML AMP IVPB ONE (14:44)
[2020-11-11 21:43] LABS: HEMATOCRIT 25.6 % (32.4-45.2); HEMOGLOBIN 8.7 GM/dL (10.7-15.3); MCH 30.9 pg (25.7-33.7); MCHC 34.2 g/dl (32.0-36.0); MEAN CELL VOLUME 90.1 fl (80-96); PLATELET COUNT 129 10^3/uL (134-434); RBC 2.83 M/mm3 (3.60-5.2); RDW 16.8 % (11.6-15.6); WHITE BLOOD COUNT 4.5 K/mm3 (4.0-10.0)
[2020-11-11 21:51] LABS: INR 2.02 (0.83-1.09); PROTHROMBIN TIME (PATIENT) 23.9 SEC (9.7-13.0)
[2020-11-11] MEDS: CHLORHEXIDINE GLUCONATE 4% CLEANSER FOR DECOLONIZATION TP SCH (22:29)
[2020-11-12] MEDS: DEXTROSE 5%-0.45% SALINE 1,000 ML IV SCH (02:40)
[2020-11-12] MEDS: INSULIN SLIDING SCALE (NOVOLOG) 1 VIAL SQ SCH ×4 (06:18→21:45)
[2020-11-12 06:50] LABS: BASO % 0.5 % (0-2.0); EOS % 2.6 % (0-4.5); HEMATOCRIT 25.1 % (32.4-45.2); HEMOGLOBIN 8.7 GM/dL (10.7-15.3); LYMPH % 9.3 % (8-40); MCH 31.6 pg (25.7-33.7); MCHC 34.8 g/dl (32.0-36.0); MEAN CELL VOLUME 90.8 fl (80-96); MEAN PLT VOLUME 7.1 fl (7.5-11.1); MONO % 10.1 % (3.8-10.2); NEUT % 77.5 % (42.8-82.8); PLATELET COUNT 110 10^3/uL (134-434); RBC 2.77 M/mm3 (3.60-5.2); RDW 16.7 % (11.6-15.6); WHITE BLOOD COUNT 4.4 K/mm3 (4.0-10.0)
[2020-11-12 06:58] LABS: ACTIVATED PTT 76.5 SECONDS (25.2-36.5)
[2020-11-12 07:20] LABS: INR 1.15 (0.83-1.09); PROTHROMBIN TIME (PATIENT) 13.8 SEC (9.7-13.0)
[2020-11-12 07:33] LABS: BLOOD UREA NITROGEN 18.8 mg/dL (7-18); CALCIUM 7.4 mg/dL (8.5-10.1); CREATININE 0.6 mg/dL (0.55-1.3); MAGNESIUM 2.1 mg/dL (1.8-2.4); PHOSPHOROUS 2.7 mg/dL (2.5-4.9)
[2020-11-12] MEDS ORDERED: D5-1/2NS+20 MEQ KCL - 20 MEQ/1,000 ML INFUS.BAG IV SCH (08:17)
[2020-11-12] MEDS ORDERED: KCL 10 MEQ IVPB 10 MEQ/100 ML INFUS.BAG IVPB SCH (08:30)
[2020-11-12] MEDS: PANTOPRAZOLE SODIUM 160 MG in SODIUM CHLORIDE 290 ML IVPB SCH (09:56)
[2020-11-12] MEDS: MUPIROCIN 2% TOPICAL OINTMENT FOR DECOLONIZATION NS SCH ×2 (10:04→21:30)
[2020-11-12] MEDS: HEPARIN - 25,000 UNIT in SODIUM CHLORIDE 495 ML IV SCH (18:00)
[2020-11-12] MEDS ORDERED: HEPARIN NA (PORCINE) 5,000 UNITS/ML 1ML VIAL IVPUSH PRN (18:31)
[2020-11-12 20:45] LABS: INR 0.96 (0.83-1.09); PROTHROMBIN TIME (PATIENT) 11.8 SEC (9.7-13.0)
[2020-11-12] MEDS: PANTOPRAZOLE 40 MG TABLET PO SCH (21:30)
[2020-11-12] MEDS: CHLORHEXIDINE GLUCONATE 4% CLEANSER FOR DECOLONIZATION TP SCH (21:41)
[2020-11-13 00:58] LABS: INR 0.95 (0.83-1.09); PROTHROMBIN TIME (PATIENT) 11.7 SEC (9.7-13.0)
[2020-11-13 01:01] LABS: ACTIVATED PTT 46.8 SECONDS (25.2-36.5)
[2020-11-13] MEDS: HEPARIN NA (PORCINE) 5,000 UNITS/ML 1ML VIAL IVPUSH PRN (01:10)
[2020-11-13] MEDS ORDERED: MAG HYDROX/AL HYDROX/SIMETH 30 ML UNIT-DOSE CUP PO ONE (05:18)
[2020-11-13] MEDS: INSULIN SLIDING SCALE (NOVOLOG) 1 VIAL SQ SCH ×4 (06:19→21:28)
[2020-11-13 07:38] LABS: BASO % 0.3 % (0-2.0); EOS % 2.6 % (0-4.5); HEMATOCRIT 24.5 % (32.4-45.2); HEMOGLOBIN 8.4 GM/dL (10.7-15.3); LYMPH % 7.3 % (8-40); MCH 31.6 pg (25.7-33.7); MCHC 34.4 g/dl (32.0-36.0); MEAN CELL VOLUME 91.9 fl (80-96); MEAN PLT VOLUME 7.3 fl (7.5-11.1); MONO % 8.4 % (3.8-10.2); NEUT % 81.4 % (42.8-82.8); PLATELET COUNT 126 10^3/uL (134-434); RBC 2.67 M/mm3 (3.60-5.2); WHITE BLOOD COUNT 4.3 K/mm3 (4.0-10.0)
[2020-11-13 07:39] LABS: INR 0.95 (0.83-1.09); PROTHROMBIN TIME (PATIENT) 11.7 SEC (9.7-13.0)
[2020-11-13 08:09] LABS: ALBUMIN 2.4 g/dl (3.4-5.0); BILIRUBIN,TOTAL 0.8 mg/dL (0.2-1); BLOOD UREA NITROGEN 12.8 mg/dL (7-18); CALCIUM 7.5 mg/dL (8.5-10.1); CREATININE 0.7 mg/dL (0.55-1.3); MAGNESIUM 1.9 mg/dL (1.8-2.4); PHOSPHOROUS 2.8 mg/dL (2.5-4.9); TOT PROT 4.8 g/dl (6.4-8.2)
[2020-11-13] MEDS: MUPIROCIN 2% TOPICAL OINTMENT FOR DECOLONIZATION NS SCH ×2 (10:24→21:24)
[2020-11-13] MEDS: LIDOCAINE 5% TOPICAL PATCH TP SCH (10:24)
[2020-11-13] MEDS: PANTOPRAZOLE 40 MG TABLET PO SCH ×2 (10:25→21:24)
[2020-11-13] MEDS ORDERED: FUROSEMIDE 40 MG/4 ML INJECTABLE VIAL IVPUSH ONE (11:30)
[2020-11-13 12:58] LABS: HEMATOCRIT 26.1 % (32.4-45.2); MCH 31.2 pg (25.7-33.7); MCHC 34.3 g/dl (32.0-36.0); MEAN CELL VOLUME 90.9 fl (80-96); PLATELET COUNT 133 10^3/uL (134-434); RBC 2.87 M/mm3 (3.60-5.2); RDW 16.1 % (11.6-15.6); WHITE BLOOD COUNT 4.3 K/mm3 (4.0-10.0)
[2020-11-13 15:52] LABS: INR 0.99 (0.83-1.09)
[2020-11-13] MEDS ORDERED: ACETAMINOPHEN 1000 MG/100 ML VIAL (NON FORMULARY) IVPB PRN (17:31)
[2020-11-13] MEDS ORDERED: ACETAMINOPHEN 325 MG TABLET (FP) ONE (17:35)
[2020-11-13] MEDS ORDERED: ACETAMINOPHEN 325 MG TABLET (FP) PO PRN ×2 (17:42→17:50)
[2020-11-13] MEDS: HEPARIN - 25,000 UNIT in SODIUM CHLORIDE 495 ML IV SCH (18:25)
[2020-11-13 19:16] LABS: INR 0.97 (0.83-1.09); PROTHROMBIN TIME (PATIENT) 11.8 SEC (9.7-13.0)
[2020-11-13] MEDS: LIDOCAINE PATCH REMOVAL MC SCH (21:24)
[2020-11-13] MEDS: CHLORHEXIDINE GLUCONATE 4% CLEANSER FOR DECOLONIZATION TP SCH (21:24)
[2020-11-14] MEDS: INSULIN SLIDING SCALE (NOVOLOG) 1 VIAL SQ SCH ×4 (06:10→22:00)
[2020-11-14 06:24] LABS: BASO % 0.3 % (0-2.0); HEMATOCRIT 24.7 % (32.4-45.2); HEMOGLOBIN 8.6 GM/dL (10.7-15.3); LYMPH % 10.3 % (8-40); MCH 31.8 pg (25.7-33.7); MCHC 34.6 g/dl (32.0-36.0); MEAN PLT VOLUME 7.3 fl (7.5-11.1); MONO % 9.9 % (3.8-10.2); NEUT % 77.5 % (42.8-82.8); PLATELET COUNT 119 10^3/uL (134-434); RBC 2.69 M/mm3 (3.60-5.2); RDW 16.5 % (11.6-15.6); WHITE BLOOD COUNT 3.5 K/mm3 (4.0-10.0)
[2020-11-14 06:29] LABS: PROTHROMBIN TIME (PATIENT) 12.1 SEC (9.7-13.0)
[2020-11-14 06:31] LABS: ACTIVATED PTT 67.5 SECONDS (25.2-36.5)
[2020-11-14 08:52] LABS: ALBUMIN 2.4 g/dl (3.4-5.0); BILIRUBIN,TOTAL 0.5 mg/dL (0.2-1); BLOOD UREA NITROGEN 11.8 mg/dL (7-18); CALCIUM 7.4 mg/dL (8.5-10.1); CREATININE 0.8 mg/dL (0.55-1.3); MAGNESIUM 2.1 mg/dL (1.8-2.4); PHOSPHOROUS 3.2 mg/dL (2.5-4.9); TOT PROT 4.9 g/dl (6.4-8.2)
[2020-11-14] MEDS ORDERED: PEG 3350/NA SULF BICARB CL/KCL 4000 ML SOLN.RECON PO ONE (09:00)
[2020-11-14] MEDS: LIDOCAINE 5% TOPICAL PATCH TP SCH (09:14)
[2020-11-14] MEDS: PANTOPRAZOLE 40 MG TABLET PO SCH ×2 (09:15→21:56)
[2020-11-14] MEDS: MUPIROCIN 2% TOPICAL OINTMENT FOR DECOLONIZATION NS SCH ×2 (09:36→22:00)
[2020-11-14] MEDS: FUROSEMIDE 40 MG TABLET (FP) PO SCH (14:04)
[2020-11-14] MEDS ORDERED: PT OWN MED DRAWER 7, Y5N ONE (15:27)
[2020-11-14] MEDS ORDERED: BISACODYL 5 MG TABLET.DR (FP) PO ONE (18:00)
[2020-11-14] MEDS: HEPARIN - 25,000 UNIT in SODIUM CHLORIDE 495 ML IV SCH (21:56)
[2020-11-14] MEDS: LIDOCAINE PATCH REMOVAL MC SCH (22:00)
[2020-11-14] MEDS: CHLORHEXIDINE GLUCONATE 4% CLEANSER FOR DECOLONIZATION TP SCH (22:00)
[2020-11-15] MEDS: INSULIN SLIDING SCALE (NOVOLOG) 1 VIAL SQ SCH ×4 (06:28→21:49)
[2020-11-15 06:32] LABS: BASO % 0.4 % (0-2.0); EOS % 2.2 % (0-4.5); HEMATOCRIT 25.5 % (32.4-45.2); HEMOGLOBIN 8.7 GM/dL (10.7-15.3); LYMPH % 12.1 % (8-40); MCH 31.6 pg (25.7-33.7); MEAN CELL VOLUME 92.9 fl (80-96); MONO % 9.2 % (3.8-10.2); NEUT % 76.1 % (42.8-82.8); PLATELET COUNT 120 10^3/uL (134-434); RBC 2.74 M/mm3 (3.60-5.2); RDW 16.2 % (11.6-15.6); WHITE BLOOD COUNT 2.8 K/mm3 (4.0-10.0)
[2020-11-15 07:46] LABS: ALBUMIN 2.3 g/dl (3.4-5.0); BLOOD UREA NITROGEN 6.3 mg/dL (7-18); CALCIUM 7.4 mg/dL (8.5-10.1); MAGNESIUM 1.9 mg/dL (1.8-2.4)
[2020-11-15 07:49] LABS: CREATININE 0.7 mg/dL (0.55-1.3); PHOSPHOROUS 3.3 mg/dL (2.5-4.9)
[2020-11-15 07:50] LABS: BILIRUBIN,TOTAL 0.5 mg/dL (0.2-1); TOT PROT 4.8 g/dl (6.4-8.2)
[2020-11-15] MEDS: LIDOCAINE 5% TOPICAL PATCH TP SCH (09:14)
[2020-11-15] MEDS: PANTOPRAZOLE 40 MG TABLET PO SCH ×2 (09:17→21:05)
[2020-11-15] MEDS: MUPIROCIN 2% TOPICAL OINTMENT FOR DECOLONIZATION NS SCH (09:17)
[2020-11-15] MEDS: FUROSEMIDE 40 MG TABLET (FP) PO SCH (09:17)
[2020-11-15] MEDS ORDERED: POTASSIUM CHLORIDE ORAL LIQUID 20 MEQ/15 ML PO ONE ×3 (10:14→11:30)
[2020-11-15] MEDS: KCL 10 MEQ IVPB 10 MEQ/100 ML INFUS.BAG IVPB SCH (10:29)
[2020-11-15 11:15] LABS: HEMATOCRIT 26.3 % (32.4-45.2); HEMOGLOBIN 9.1 GM/dL (10.7-15.3); MCH 31.7 pg (25.7-33.7); MCHC 34.5 g/dl (32.0-36.0); MEAN CELL VOLUME 91.8 fl (80-96); MEAN PLT VOLUME 7.3 fl (7.5-11.1); PLATELET COUNT 156 10^3/uL (134-434); RBC 2.87 M/mm3 (3.60-5.2); RDW 16.3 % (11.6-15.6); WHITE BLOOD COUNT 3.7 K/mm3 (4.0-10.0)
[2020-11-15] MEDS ORDERED: WARFARIN NA 5 MG TABLET PO SCH (15:15)
[2020-11-15] MEDS ORDERED: HEPARIN NA (PORCINE) 5,000 UNITS/ML 1ML VIAL IVPUSH ONE (15:20)
[2020-11-15] MEDS ORDERED: PT OWN MED DRAWER 7, Y5N ONE ×2 (15:22→20:59)
[2020-11-15] MEDS: HEPARIN - 25,000 UNIT in SODIUM CHLORIDE 495 ML IV SCH (16:25)
[2020-11-15] MEDS: CHLORHEXIDINE GLUCONATE 4% CLEANSER FOR DECOLONIZATION TP SCH (21:05)
[2020-11-15] MEDS: LIDOCAINE PATCH REMOVAL MC SCH (21:05)
[2020-11-16] MEDS: INSULIN SLIDING SCALE (NOVOLOG) 1 VIAL SQ SCH ×5 (06:44→23:21)
[2020-11-16 07:17] LABS: INR 1.04 (0.83-1.09); PROTHROMBIN TIME (PATIENT) 12.6 SEC (9.7-13.0)
[2020-11-16 07:20] LABS: ACTIVATED PTT 44.3 SECONDS (25.2-36.5)
[2020-11-16] MEDS: HEPARIN NA (PORCINE) 5,000 UNITS/ML 1ML VIAL IVPUSH PRN ×2 (07:40→21:38)
[2020-11-16] MEDS: LIDOCAINE 5% TOPICAL PATCH TP SCH (09:51)
[2020-11-16] MEDS: PANTOPRAZOLE 40 MG TABLET PO SCH ×2 (09:52→22:15)
[2020-11-16] MEDS: FUROSEMIDE 40 MG TABLET (FP) PO SCH (09:52)
[2020-11-16 11:16] LABS: BASO % 0.3 % (0-2.0); EOS % 2.1 % (0-4.5); HEMATOCRIT 25.2 % (32.4-45.2); HEMOGLOBIN 8.4 GM/dL (10.7-15.3); LYMPH % 8.1 % (8-40); MCH 31.5 pg (25.7-33.7); MCHC 33.3 g/dl (32.0-36.0); MEAN CELL VOLUME 94.6 fl (80-96); MEAN PLT VOLUME 8.1 fl (7.5-11.1); MONO % 7.6 % (3.8-10.2); NEUT % 81.9 % (42.8-82.8); PLATELET COUNT 127 10^3/uL (134-434); RBC 2.67 M/mm3 (3.60-5.2); RDW 17.3 % (11.6-15.6); WHITE BLOOD COUNT 3.3 K/mm3 (4.0-10.0)
[2020-11-16] MEDS ORDERED: PT OWN MED DRAWER 7, Y5N ONE (16:37)
[2020-11-16] MEDS: WARFARIN NA 5 MG TABLET PO SCH (17:33)
[2020-11-16] MEDS: HEPARIN - 25,000 UNIT in SODIUM CHLORIDE 495 ML IV SCH (18:25)
[2020-11-16 19:35] LABS: INR 1.03 (0.83-1.09); PROTHROMBIN TIME (PATIENT) 12.6 SEC (9.7-13.0)
[2020-11-16 19:38] LABS: ACTIVATED PTT 46.7 SECONDS (25.2-36.5)
[2020-11-16] MEDS: CHLORHEXIDINE GLUCONATE 4% CLEANSER FOR DECOLONIZATION TP SCH (23:01)
[2020-11-16] MEDS: LIDOCAINE PATCH REMOVAL MC SCH (23:01)
[2020-11-17] MEDS: INSULIN SLIDING SCALE (NOVOLOG) 1 VIAL SQ SCH ×4 (06:38→22:00)
[2020-11-17 08:47] LABS: HEMATOCRIT 26.6 % (32.4-45.2); HEMOGLOBIN 8.9 GM/dL (10.7-15.3); MCH 30.9 pg (25.7-33.7); MCHC 33.4 g/dl (32.0-36.0); MEAN CELL VOLUME 92.7 fl (80-96); MEAN PLT VOLUME 7.3 fl (7.5-11.1); PLATELET COUNT 139 10^3/uL (134-434); RBC 2.87 M/mm3 (3.60-5.2); RDW 16.9 % (11.6-15.6); WHITE BLOOD COUNT 3.1 K/mm3 (4.0-10.0)
[2020-11-17 09:43] LABS: ALBUMIN 2.7 g/dl (3.4-5.0); BLOOD UREA NITROGEN 8.9 mg/dL (7-18); CALCIUM 8.1 mg/dL (8.5-10.1); CREATININE 0.7 mg/dL (0.55-1.3); TOT PROT 5.6 g/dl (6.4-8.2)
[2020-11-17] MEDS: LIDOCAINE 5% TOPICAL PATCH TP SCH (10:07)
[2020-11-17] MEDS: FUROSEMIDE 40 MG TABLET (FP) PO SCH (10:07)
[2020-11-17] MEDS: PANTOPRAZOLE 40 MG TABLET PO SCH ×2 (10:07→21:59)
[2020-11-17] MEDS: VERAPAMIL HCL 240 MG E.R. TABLET PO SCH ×2 (14:42→21:55)
[2020-11-17] MEDS ORDERED: INSULIN (NOVOLOG) ASPART 100 UNITS/ML 10ML VIAL ONE (17:18)
[2020-11-17 17:20] LABS: INR 1.3 (0.83-1.09); PROTHROMBIN TIME (PATIENT) 15.6 SEC (9.7-13.0)
[2020-11-17] MEDS: WARFARIN NA 5 MG TABLET PO SCH (17:39)
[2020-11-17] MEDS: CHLORHEXIDINE GLUCONATE 4% CLEANSER FOR DECOLONIZATION TP SCH (21:50)
[2020-11-17] MEDS: LIDOCAINE PATCH REMOVAL MC SCH (22:00)
[2020-11-18] MEDS: INSULIN SLIDING SCALE (NOVOLOG) 1 VIAL SQ SCH ×5 (06:31→22:05)
[2020-11-18] MEDS ORDERED: HEPARIN NA (PORCINE) 5,000 UNITS/ML 1ML VIAL IVPUSH PRN ×2 (06:55)
[2020-11-18] MEDS ORDERED: HEPARIN - 25,000 UNIT in SODIUM CHLORIDE 495 ML IV SCH (06:55)
[2020-11-18 07:50] LABS: BASO % 0.4 % (0-2.0); HEMATOCRIT 25.5 % (32.4-45.2); HEMOGLOBIN 8.4 GM/dL (10.7-15.3); LYMPH % 10.7 % (8-40); MCH 30.8 pg (25.7-33.7); MEAN CELL VOLUME 93.2 fl (80-96); MEAN PLT VOLUME 7.4 fl (7.5-11.1); MONO % 8.3 % (3.8-10.2); NEUT % 78.6 % (42.8-82.8); PLATELET COUNT 124 10^3/uL (134-434); RBC 2.74 M/mm3 (3.60-5.2); RDW 17.2 % (11.6-15.6); WHITE BLOOD COUNT 2.8 K/mm3 (4.0-10.0)
[2020-11-18 08:20] LABS: INR 1.78 (0.83-1.09); PROTHROMBIN TIME (PATIENT) 21.5 SEC (9.7-13.0)
[2020-11-18 08:23] LABS: ACTIVATED PTT 80.8 SECONDS (25.2-36.5)
[2020-11-18 09:29] LABS: ALBUMIN 2.7 g/dl (3.4-5.0); BILIRUBIN,TOTAL 0.5 mg/dL (0.2-1); CALCIUM 8.3 mg/dL (8.5-10.1); CREATININE 0.8 mg/dL (0.55-1.3); MAGNESIUM 2.1 mg/dL (1.8-2.4); TOT PROT 5.6 g/dl (6.4-8.2)
[2020-11-18] MEDS: VERAPAMIL HCL 240 MG E.R. TABLET PO SCH ×2 (09:35→21:58)
[2020-11-18] MEDS: PANTOPRAZOLE 40 MG TABLET PO SCH ×2 (09:35→21:58)
[2020-11-18] MEDS: FUROSEMIDE 40 MG TABLET (FP) PO SCH (09:35)
[2020-11-18] MEDS: LIDOCAINE 5% TOPICAL PATCH TP SCH (09:35)
[2020-11-18] MEDS ORDERED: POLYETHYLENE GLYCOL (HEALTHYLAX) 3350 17 GM PACKET PO ONE (10:26)
[2020-11-18] MEDS ORDERED: INSULIN (NOVOLOG) ASPART 100 UNITS/ML 10ML VIAL ONE ×2 (11:45→17:07)
[2020-11-18] MEDS ORDERED: PT OWN MED DRAWER 7, Y5N ONE (15:11)
[2020-11-18] MEDS: ACETAMINOPHEN 325 MG TABLET (FP) PO PRN (16:42)
[2020-11-18] MEDS ORDERED: WARFARIN NA 10 MG TABLET PO SCH (18:00)
[2020-11-18] MEDS: LIDOCAINE PATCH REMOVAL MC SCH (21:59)
[2020-11-18] MEDS ORDERED: CHLORHEXIDINE GLUCONATE 4% CLEANSER FOR DECOLONIZATION TP SCH (22:00)
[2020-11-19] MEDS: INSULIN SLIDING SCALE (NOVOLOG) 1 VIAL SQ SCH ×4 (06:06→21:37)
[2020-11-19 08:09] LABS: BASO % 0.3 % (0-2.0); EOS % 1.2 % (0-4.5); HEMATOCRIT 24.3 % (32.4-45.2); HEMOGLOBIN 8.2 GM/dL (10.7-15.3); LYMPH % 8.9 % (8-40); MCH 31.1 pg (25.7-33.7); MCHC 33.7 g/dl (32.0-36.0); MEAN CELL VOLUME 92.4 fl (80-96); MEAN PLT VOLUME 7.8 fl (7.5-11.1); MONO % 6.6 % (3.8-10.2); PLATELET COUNT 138 10^3/uL (134-434); RBC 2.63 M/mm3 (3.60-5.2); RDW 16.3 % (11.6-15.6); WHITE BLOOD COUNT 3.3 K/mm3 (4.0-10.0)
[2020-11-19 08:20] LABS: INR 3.08 (0.83-1.09); PROTHROMBIN TIME (PATIENT) 36.7 SEC (9.7-13.0)
[2020-11-19 08:23] LABS: ACTIVATED PTT 74.1 SECONDS (25.2-36.5)
[2020-11-19 09:04] LABS: ALBUMIN 2.7 g/dl (3.4-5.0); BILIRUBIN,TOTAL 0.6 mg/dL (0.2-1); BLOOD UREA NITROGEN 17.6 mg/dL (7-18); CALCIUM 8.2 mg/dL (8.5-10.1); CREATININE 0.8 mg/dL (0.55-1.3); TOT PROT 5.5 g/dl (6.4-8.2)
[2020-11-19] MEDS: PANTOPRAZOLE 40 MG TABLET PO SCH ×2 (10:33→21:34)
[2020-11-19] MEDS: FUROSEMIDE 40 MG TABLET (FP) PO SCH (10:33)
[2020-11-19] MEDS: VERAPAMIL HCL 240 MG E.R. TABLET PO SCH ×2 (10:33→21:35)
[2020-11-19] MEDS: LIDOCAINE 5% TOPICAL PATCH TP SCH (10:33)
[2020-11-19 11:23] VITALS: BMI 32.1
[2020-11-19 11:58] LABS: HEMATOCRIT 24.7 % (32.4-45.2); HEMOGLOBIN 8.3 GM/dL (10.7-15.3); MCHC 33.5 g/dl (32.0-36.0); MEAN CELL VOLUME 92.4 fl (80-96); MEAN PLT VOLUME 7.7 fl (7.5-11.1); PLATELET COUNT 146 10^3/uL (134-434); RBC 2.68 M/mm3 (3.60-5.2); RDW 16.5 % (11.6-15.6); WHITE BLOOD COUNT 3.8 K/mm3 (4.0-10.0)
[2020-11-19] MEDS ORDERED: POLYETHYLENE GLYCOL (HEALTHYLAX) 3350 17 GM PACKET PO ONE (15:38)
[2020-11-19] MEDS: WARFARIN NA 2 MG TABLET PO SCH (17:47)
[2020-11-19] MEDS: DOCUSATE SODIUM 100 MG CAPSULE (FP) PO SCH ×2 (17:47→21:35)
[2020-11-19] MEDS: MELATONIN 5 MG TABLETS PO PRN (21:34)
[2020-11-19] MEDS ORDERED: INSULIN (NOVOLOG) ASPART 100 UNITS/ML 10ML VIAL ONE (21:36)
[2020-11-19] MEDS: LIDOCAINE PATCH REMOVAL MC SCH (21:37)
[2020-11-20] MEDS: INSULIN SLIDING SCALE (NOVOLOG) 1 VIAL SQ SCH ×4 (06:39→21:36)
[2020-11-20] MEDS: DOCUSATE SODIUM 100 MG CAPSULE (FP) PO SCH ×3 (06:39→21:36)
[2020-11-20] MEDS: VERAPAMIL HCL 240 MG E.R. TABLET PO SCH ×2 (09:57→21:36)
[2020-11-20] MEDS: PANTOPRAZOLE 40 MG TABLET PO SCH ×2 (09:57→21:36)
[2020-11-20] MEDS: FUROSEMIDE 40 MG TABLET (FP) PO SCH (09:58)
[2020-11-20] MEDS: LIDOCAINE 5% TOPICAL PATCH TP SCH (09:58)
[2020-11-20 12:42] LABS: BASO % 0.3 % (0-2.0); EOS % 0.9 % (0-4.5); HEMATOCRIT 23.9 % (32.4-45.2); HEMOGLOBIN 7.9 GM/dL (10.7-15.3); LYMPH % 6.8 % (8-40); MCH 30.4 pg (25.7-33.7); MCHC 33.1 g/dl (32.0-36.0); MEAN CELL VOLUME 91.6 fl (80-96); MONO % 7.7 % (3.8-10.2); NEUT % 84.3 % (42.8-82.8); PLATELET COUNT 143 10^3/uL (134-434); RDW 16.8 % (11.6-15.6)
[2020-11-20 12:48] LABS: PROTHROMBIN TIME (PATIENT) 50.2 SEC (9.7-13.0)
[2020-11-20 12:51] LABS: ACTIVATED PTT 39.4 SECONDS (25.2-36.5)
[2020-11-20 13:10] LABS: CALCIUM 7.9 mg/dL (8.5-10.1)
[2020-11-20 13:11] LABS: ALBUMIN 2.5 g/dl (3.4-5.0); BLOOD UREA NITROGEN 21.6 mg/dL (7-18); MAGNESIUM 1.8 mg/dL (1.8-2.4)
[2020-11-20 13:12] LABS: INR 4.26 (0.83-1.09)
[2020-11-20 13:13] LABS: CREATININE 0.9 mg/dL (0.55-1.3)
[2020-11-20 13:15] LABS: BILIRUBIN,TOTAL 0.5 mg/dL (0.2-1); TOT PROT 5.3 g/dl (6.4-8.2)
[2020-11-20] MEDS: WARFARIN NA 2 MG TABLET PO SCH (17:39)
[2020-11-20 17:44] LABS: BASO % 0.3 % (0-2.0); EOS % 0.7 % (0-4.5); HEMATOCRIT 23.9 % (32.4-45.2); HEMOGLOBIN 7.9 GM/dL (10.7-15.3); LYMPH % 7.8 % (8-40); MCHC 32.9 g/dl (32.0-36.0); MEAN CELL VOLUME 91.3 fl (80-96); MEAN PLT VOLUME 7.4 fl (7.5-11.1); MONO % 8.6 % (3.8-10.2); NEUT % 82.6 % (42.8-82.8); PLATELET COUNT 144 10^3/uL (134-434); RBC 2.62 M/mm3 (3.60-5.2); RDW 16.5 % (11.6-15.6); WHITE BLOOD COUNT 3.6 K/mm3 (4.0-10.0)
[2020-11-20 17:52] LABS: PROTHROMBIN TIME (PATIENT) 53.7 SEC (9.7-13.0)
[2020-11-20 18:19] LABS: INR 4.56 (0.83-1.09)
[2020-11-20] MEDS ORDERED: INSULIN (NOVOLOG) ASPART 100 UNITS/ML 10ML VIAL ONE (21:35)
[2020-11-20] MEDS: MELATONIN 5 MG TABLETS PO PRN (21:37)
[2020-11-20] MEDS: LIDOCAINE PATCH REMOVAL MC SCH (22:01)
[2020-11-21] MEDS: DOCUSATE SODIUM 100 MG CAPSULE (FP) PO SCH ×3 (06:25→21:08)
[2020-11-21] MEDS: INSULIN SLIDING SCALE (NOVOLOG) 1 VIAL SQ SCH ×4 (06:25→21:08)
[2020-11-21 07:27] LABS: BASO % 0.3 % (0-2.0); EOS % 1.3 % (0-4.5); HEMATOCRIT 23.9 % (32.4-45.2); HEMOGLOBIN 7.9 GM/dL (10.7-15.3); LYMPH % 7.8 % (8-40); MCH 29.8 pg (25.7-33.7); MCHC 32.9 g/dl (32.0-36.0); MEAN CELL VOLUME 90.6 fl (80-96); MEAN PLT VOLUME 7.7 fl (7.5-11.1); NEUT % 82.6 % (42.8-82.8); PLATELET COUNT 135 10^3/uL (134-434); RBC 2.64 M/mm3 (3.60-5.2); RDW 16.4 % (11.6-15.6); WHITE BLOOD COUNT 3.7 K/mm3 (4.0-10.0)
[2020-11-21 07:48] LABS: ALBUMIN 2.5 g/dl (3.4-5.0); BLOOD UREA NITROGEN 23.9 mg/dL (7-18); CALCIUM 7.8 mg/dL (8.5-10.1); MAGNESIUM 1.9 mg/dL (1.8-2.4)
[2020-11-21 07:52] LABS: CREATININE 0.9 mg/dL (0.55-1.3)
[2020-11-21 07:53] LABS: BILIRUBIN,TOTAL 0.5 mg/dL (0.2-1); TOT PROT 5.2 g/dl (6.4-8.2)
[2020-11-21 08:51] LABS: HEMATOCRIT 24.8 % (32.4-45.2); HEMOGLOBIN 8.2 GM/dL (10.7-15.3); MCHC 33.1 g/dl (32.0-36.0); MEAN CELL VOLUME 90.7 fl (80-96); MEAN PLT VOLUME 7.2 fl (7.5-11.1); PLATELET COUNT 136 10^3/uL (134-434); RBC 2.73 M/mm3 (3.60-5.2); RDW 16.8 % (11.6-15.6); WHITE BLOOD COUNT 4.1 K/mm3 (4.0-10.0)
[2020-11-21 08:59] LABS: INR 3.49 (0.83-1.09); PROTHROMBIN TIME (PATIENT) 40.7 SEC (9.7-13.0)
[2020-11-21] MEDS: VERAPAMIL HCL 240 MG E.R. TABLET PO SCH ×2 (09:18→21:08)
[2020-11-21] MEDS: LIDOCAINE 5% TOPICAL PATCH TP SCH ×2 (09:18→09:20)
[2020-11-21] MEDS: PANTOPRAZOLE 40 MG TABLET PO SCH ×2 (09:18→21:08)
[2020-11-21] MEDS: FUROSEMIDE 40 MG TABLET (FP) PO SCH (09:18)
[2020-11-21] MEDS ORDERED: INSULIN (NOVOLOG) ASPART 100 UNITS/ML 10ML VIAL ONE (11:27)
[2020-11-21] MEDS ORDERED: POLYETHYLENE GLYCOL (HEALTHYLAX) 3350 17 GM PACKET PO ONE (13:53)
[2020-11-21] MEDS: WARFARIN NA 2 MG TABLET PO SCH (17:02)
[2020-11-21] MEDS: ACETAMINOPHEN 325 MG TABLET (FP) PO PRN (21:08)
[2020-11-21] MEDS: LIDOCAINE PATCH REMOVAL MC SCH (21:08)
[2020-11-21] MEDS: MELATONIN 5 MG TABLETS PO PRN (21:08)
[2020-11-22] MEDS: INSULIN SLIDING SCALE (NOVOLOG) 1 VIAL SQ SCH ×4 (07:01→21:33)
[2020-11-22] MEDS: DOCUSATE SODIUM 100 MG CAPSULE (FP) PO SCH ×3 (07:01→21:33)
[2020-11-22 08:27] LABS: BASO % 0.3 % (0-2.0); EOS % 1.3 % (0-4.5); HEMATOCRIT 24.9 % (32.4-45.2); HEMOGLOBIN 8.3 GM/dL (10.7-15.3); LYMPH % 10.6 % (8-40); MCH 30.1 pg (25.7-33.7); MCHC 33.3 g/dl (32.0-36.0); MEAN CELL VOLUME 90.4 fl (80-96); MEAN PLT VOLUME 7.9 fl (7.5-11.1); MONO % 7.8 % (3.8-10.2); PLATELET COUNT 158 10^3/uL (134-434); RBC 2.75 M/mm3 (3.60-5.2); RDW 16.4 % (11.6-15.6); WHITE BLOOD COUNT 3.8 K/mm3 (4.0-10.0)
[2020-11-22 08:31] LABS: INR 2.9 (0.83-1.09); PROTHROMBIN TIME (PATIENT) 34.6 SEC (9.7-13.0)
[2020-11-22 09:02] LABS: CALCIUM 7.9 mg/dL (8.5-10.1)
[2020-11-22 09:04] LABS: ALBUMIN 2.6 g/dl (3.4-5.0); BLOOD UREA NITROGEN 25.8 mg/dL (7-18); MAGNESIUM 1.9 mg/dL (1.8-2.4)
[2020-11-22 09:07] LABS: CREATININE 0.8 mg/dL (0.55-1.3)
[2020-11-22 09:09] LABS: BILIRUBIN,TOTAL 0.6 mg/dL (0.2-1); TOT PROT 5.2 g/dl (6.4-8.2)
[2020-11-22] MEDS ORDERED: POLYETHYLENE GLYCOL (HEALTHYLAX) 3350 17 GM PACKET PO SCH (10:00)
[2020-11-22] MEDS: PANTOPRAZOLE 40 MG TABLET PO SCH ×2 (10:27→21:33)
[2020-11-22] MEDS: FUROSEMIDE 40 MG TABLET (FP) PO SCH ×2 (10:27→14:21)
[2020-11-22] MEDS: LIDOCAINE 5% TOPICAL PATCH TP SCH (10:27)
[2020-11-22] MEDS: VERAPAMIL HCL 240 MG E.R. TABLET PO SCH ×2 (10:27→21:33)
[2020-11-22] MEDS: WARFARIN NA 2 MG TABLET PO SCH (18:01)
[2020-11-22] MEDS: ACETAMINOPHEN 325 MG TABLET (FP) PO PRN (21:32)
[2020-11-22] MEDS: MELATONIN 5 MG TABLETS PO PRN (21:33)
[2020-11-22] MEDS: LIDOCAINE PATCH REMOVAL MC SCH (21:34)
[2020-11-23] MEDS: FUROSEMIDE 40 MG TABLET (FP) PO SCH ×2 (05:59→15:30)
[2020-11-23] MEDS: INSULIN SLIDING SCALE (NOVOLOG) 1 VIAL SQ SCH ×4 (05:59→21:07)
[2020-11-23] MEDS: DOCUSATE SODIUM 100 MG CAPSULE (FP) PO SCH ×3 (05:59→21:09)
[2020-11-23 07:40] LABS: BASO % 0.4 % (0-2.0); HEMATOCRIT 24.4 % (32.4-45.2); LYMPH % 10.1 % (8-40); MCH 29.4 pg (25.7-33.7); MCHC 32.9 g/dl (32.0-36.0); MEAN CELL VOLUME 89.4 fl (80-96); MEAN PLT VOLUME 7.8 fl (7.5-11.1); MONO % 9.2 % (3.8-10.2); NEUT % 79.3 % (42.8-82.8); PLATELET COUNT 138 10^3/uL (134-434); RBC 2.73 M/mm3 (3.60-5.2); RDW 16.8 % (11.6-15.6); WHITE BLOOD COUNT 3.9 K/mm3 (4.0-10.0)
[2020-11-23 07:52] LABS: INR 2.98 (0.83-1.09); PROTHROMBIN TIME (PATIENT) 35.5 SEC (9.7-13.0)
[2020-11-23 08:09] LABS: ALBUMIN 2.5 g/dl (3.4-5.0); CALCIUM 7.7 mg/dL (8.5-10.1)
[2020-11-23 08:10] LABS: MAGNESIUM 1.9 mg/dL (1.8-2.4)
[2020-11-23 08:13] LABS: CREATININE 0.9 mg/dL (0.55-1.3)
[2020-11-23 08:14] LABS: BILIRUBIN,TOTAL 0.5 mg/dL (0.2-1); TOT PROT 5.3 g/dl (6.4-8.2)
[2020-11-23] MEDS: PANTOPRAZOLE 40 MG TABLET PO SCH ×2 (10:25→21:01)
[2020-11-23] MEDS: LIDOCAINE 5% TOPICAL PATCH TP SCH (10:25)
[2020-11-23] MEDS: VERAPAMIL HCL 240 MG E.R. TABLET PO SCH ×2 (10:25→21:01)
[2020-11-23] MEDS: SENNOSIDES 8.6MG TABLET (FP) PO PRN ×2 (17:36→21:01)
[2020-11-23] MEDS: WARFARIN NA 2 MG TABLET PO SCH (17:36)
[2020-11-23] MEDS: ACETAMINOPHEN 325 MG TABLET (FP) PO PRN (21:01)
[2020-11-23] MEDS: MELATONIN 5 MG TABLETS PO PRN (21:01)
[2020-11-23] MEDS ORDERED: INSULIN (NOVOLOG) ASPART 100 UNITS/ML 10ML VIAL ONE (21:06)
[2020-11-23] MEDS: LIDOCAINE PATCH REMOVAL MC SCH (21:09)
[2020-11-23] MEDS: POLYETHYLENE GLYCOL (HEALTHYLAX) 3350 17 GM PACKET PO SCH (21:11)
[2020-11-24] MEDS: FUROSEMIDE 40 MG TABLET (FP) PO SCH ×2 (05:41→13:31)
[2020-11-24] MEDS: INSULIN SLIDING SCALE (NOVOLOG) 1 VIAL SQ SCH ×4 (06:23→21:11)
[2020-11-24 07:59] LABS: INR 3.07 (0.83-1.09); PROTHROMBIN TIME (PATIENT) 36.6 SEC (9.7-13.0)
[2020-11-24 08:01] LABS: BASO % 0.4 % (0-2.0); EOS % 1.1 % (0-4.5); HEMATOCRIT 23.9 % (32.4-45.2); HEMOGLOBIN 7.9 GM/dL (10.7-15.3); LYMPH % 8.3 % (8-40); MCH 29.6 pg (25.7-33.7); MCHC 33.2 g/dl (32.0-36.0); MEAN CELL VOLUME 89.1 fl (80-96); MEAN PLT VOLUME 7.6 fl (7.5-11.1); MONO % 8.8 % (3.8-10.2); NEUT % 81.4 % (42.8-82.8); PLATELET COUNT 146 10^3/uL (134-434); RBC 2.68 M/mm3 (3.60-5.2); WHITE BLOOD COUNT 3.8 K/mm3 (4.0-10.0)
[2020-11-24 08:15] LABS: CALCIUM 7.7 mg/dL (8.5-10.1); MAGNESIUM 1.9 mg/dL (1.8-2.4)
[2020-11-24 08:17] LABS: ALBUMIN 2.4 g/dl (3.4-5.0); BLOOD UREA NITROGEN 23.8 mg/dL (7-18)
[2020-11-24 08:20] LABS: CREATININE 0.7 mg/dL (0.55-1.3)
[2020-11-24 08:21] LABS: BILIRUBIN,TOTAL 0.6 mg/dL (0.2-1)
[2020-11-24] MEDS ORDERED: WARFARIN NA 3 MG TABLET PO SCH (08:33)
[2020-11-24] MEDS: PANTOPRAZOLE 40 MG TABLET PO SCH ×2 (09:38→21:10)
[2020-11-24] MEDS: POLYETHYLENE GLYCOL (HEALTHYLAX) 3350 17 GM PACKET PO SCH ×2 (09:38→21:13)
[2020-11-24] MEDS: LIDOCAINE 5% TOPICAL PATCH TP SCH (09:38)
[2020-11-24] MEDS: VERAPAMIL HCL 240 MG E.R. TABLET PO SCH ×2 (09:38→21:10)
[2020-11-24] MEDS ORDERED: LOSARTAN POTASSIUM 50 MG TABLET PO SCH (10:00)
[2020-11-24] MEDS ORDERED: METHIMAZOLE 5 MG TABLET PO SCH (10:00)
[2020-11-24] MEDS ORDERED: PT OWN MED DRAWER 7, Y5N ONE (10:28)
[2020-11-24] MEDS ORDERED: INSULIN (NOVOLOG) ASPART 100 UNITS/ML 10ML VIAL ONE (12:04)
[2020-11-24] MEDS: ACETAMINOPHEN 325 MG TABLET (FP) PO PRN (13:35)
[2020-11-24] MEDS ORDERED: WARFARIN NA 2 MG TABLET PO SCH (18:00)
[2020-11-24] MEDS: DOCUSATE SODIUM 100 MG CAPSULE (FP) PO SCH (21:10)
[2020-11-24] MEDS: LIDOCAINE PATCH REMOVAL MC SCH (21:14)
[2020-11-24] MEDS: MELATONIN 5 MG TABLETS PO PRN (22:44)
[2020-11-25 06:08] VITALS: BP 109/74; PULSE 60; TEMP 97.6
== END 2020-11-25 06:00 | disposition short-term general hospital (02) | DRG 813 ==
LOC: JER 10:52 → JERBED 13:44 → JICU 15:31 → J4W 11-16 22:52
PROVIDERS: ADMIT Internal Medicine; ATTEND Nurse Practitioner Acute Care
PROC: 30233N1 Transfusion of Nonautologous Red Blood Cells into Peripheral Vein, Percutaneous Approach (ICD-10-PCS; principal; 2020-11-10)
PROC: 0DJ08ZZ Inspection of Upper Intestinal Tract, Via Natural or Artificial Opening Endoscopic (ICD-10-PCS; 2020-11-12)
PROC: 0DJD8ZZ Inspection of Lower Intestinal Tract, Via Natural or Artificial Opening Endoscopic (ICD-10-PCS; 2020-11-15)
DX: D68.32 Hemorrhagic disorder due to extrinsic circulating anticoagulants (principal); K25.4 Chronic or unspecified gastric ulcer with hemorrhage; D62 Acute posthemorrhagic anemia; I50.32 Chronic diastolic (congestive) heart failure; I48.21 Permanent atrial fibrillation; I10 Essential (primary) hypertension; E78.5 Hyperlipidemia, unspecified; E05.90 Thyrotoxicosis, unspecified without thyrotoxic crisis or storm; I25.10 Atherosclerotic heart disease of native coronary artery without angina pectoris; Z98.61 Coronary angioplasty status; E11.9 Type 2 diabetes mellitus without complications; K44.9 Diaphragmatic hernia without obstruction or gangrene; K64.8 Other hemorrhoids
CPT/HCPCS: 36415; 36430; 71045-TC-FY; 74177-TC; 76705-TC; 80048; 80053; 82272; 82728; 82962; 83540; 83550; 83735; 83880; 84100; 84443; 85025; 85027; 85045; 85610; 85730; 86850; 86900; 86901; 86922; 93005; 93010; 94761; 97116-GP; 97161-GP; 99285-25; C9132; C9803; J1644; P9058; Q9967; U0003; U0005

== ENCOUNTER 2021-01-11 12:09 | Observation (INO) | payer OTHER ==
[2021-01-11 12:17] VITALS: BMI 32.8
[2021-01-11] MEDS ORDERED: LOSARTAN POTASSIUM 50 MG TABLET PO ONE (13:37)
[2021-01-11 13:52] LABS: BASO % 0.3 % (0-2.0); EOS % 0.2 % (0-4.5); HEMATOCRIT 31.8 % (32.4-45.2); HEMOGLOBIN 10.2 GM/dL (10.7-15.3); LYMPH % 5.3 % (8-40); MCH 27.2 pg (25.7-33.7); MCHC 32.1 g/dl (32.0-36.0); MEAN CELL VOLUME 84.8 fl (80-96); MEAN PLT VOLUME 7.6 fl (7.5-11.1); NEUT % 89.2 % (42.8-82.8); PLATELET COUNT 158 10^3/uL (134-434); RBC 3.75 M/mm3 (3.60-5.2); RDW 19.4 % (11.6-15.6); WHITE BLOOD COUNT 4.6 K/mm3 (4.0-10.0)
[2021-01-11 13:58] LABS: INR 2.69 (0.83-1.09); PROTHROMBIN TIME (PATIENT) 33.4 SEC (9.7-13.0)
[2021-01-11 14:01] LABS: ACTIVATED PTT 42.9 SECONDS (25.2-36.5)
[2021-01-11] MEDS ORDERED: FUROSEMIDE 40 MG TABLET (FP) PO ONE (14:42)
[2021-01-11 15:05] LABS: ALBUMIN 2.8 g/dl (3.4-5.0); ALK PHOS 94 U/L (45-117); ANION GAP 6 MMOL/L (8-16); BILIRUBIN,TOTAL 0.6 mg/dL (0.2-1); BLOOD UREA NITROGEN 17.2 mg/dL (7-18); CALCIUM 8.5 mg/dL (8.5-10.1); CHLORIDE 105 mmol/L (98-107); CO2 29 mmol/L (21-32); CREATININE 0.7 mg/dL (0.55-1.3); GLUCOSE,RANDOM 119 mg/dL (74-106); MAGNESIUM 2.1 mg/dL (1.8-2.4); N-TERMINAL BNP 1666.5 pg/ml (5-450); PHOSPHOROUS 3.4 mg/dL (2.5-4.9); SGOT/AST 29 U/L (15-37); SGPT/ALT 19 U/L (13-61); SODIUM 140 mmol/L (136-145); TOT PROT 6.4 g/dl (6.4-8.2)
[2021-01-11] MEDS ORDERED: FUROSEMIDE 40 MG TABLET (FP) ONE (15:16)
[2021-01-11 16:50] LABS: URINE APPEARANCE CLEAR; URINE BILIRUBIN NEGATIVE (NEGATIVE); URINE COLOR YELLOW; URINE GLUCOSE (UA) NEGATIVE (NEGATIVE); URINE KETONE NEGATIVE (NEGATIVE); URINE LEUK ESTERASE NEGATIVE (NEGATIVE); URINE NITRITE NEGATIVE (NEGATIVE); URINE PROTEIN NEGATIVE (NEGATIVE); URINE UROBILINOGEN 0.2 mg/dL (0.2-1.0)
[2021-01-11] MEDS ORDERED: FUROSEMIDE 40 MG/4 ML INJECTABLE VIAL IVPUSH ONE (19:14)
[2021-01-11] MEDS ORDERED: FUROSEMIDE 40 MG/4 ML INJECTABLE VIAL ONE (19:45)
[2021-01-11] MEDS ORDERED: ATORVASTATIN CA 20 MG TABLET (FP) PO SCH (22:00)
[2021-01-11] MEDS ORDERED: ATORVASTATIN CA 20 MG TABLET (FP) ONE (23:00)
[2021-01-11] MEDS ORDERED: MELATONIN 5 MG TABLETS PO ONE (23:25)
[2021-01-11] MEDS ORDERED: MELATONIN 5 MG TABLETS ONE (23:26)
[2021-01-11] MEDS: VERAPAMIL HCL 120 MG CAP SUSTAINED RELEASE PO SCH (23:30)
[2021-01-12] MEDS ORDERED: FUROSEMIDE 40 MG/4 ML INJECTABLE VIAL IVPUSH SCH (06:00)
[2021-01-12 06:19] VITALS: TEMP 98.1
[2021-01-12] MEDS: INSULIN SLIDING SCALE (NOVOLOG) 1 VIAL SQ SCH ×2 (06:21→13:33)
[2021-01-12] MEDS ORDERED: FUROSEMIDE 40 MG/4 ML INJECTABLE VIAL ONE (06:23)
[2021-01-12] MEDS ORDERED: GLIMEPIRIDE 2 MG TABLET PO SCH (07:00)
[2021-01-12 07:01] LABS: BASO % 0.5 % (0-2.0); EOS % 1.3 % (0-4.5); HEMATOCRIT 31.9 % (32.4-45.2); HEMOGLOBIN 10.3 GM/dL (10.7-15.3); LYMPH % 9.4 % (8-40); MCHC 32.2 g/dl (32.0-36.0); MEAN CELL VOLUME 83.6 fl (80-96); MEAN PLT VOLUME 7.4 fl (7.5-11.1); MONO % 9.3 % (3.8-10.2); NEUT % 79.5 % (42.8-82.8); PLATELET COUNT 148 10^3/uL (134-434); RBC 3.82 M/mm3 (3.60-5.2); RDW 19.1 % (11.6-15.6); WHITE BLOOD COUNT 3.7 K/mm3 (4.0-10.0)
[2021-01-12 07:10] LABS: INR 2.39 (0.83-1.09); PROTHROMBIN TIME (PATIENT) 29.6 SEC (9.7-13.0)
[2021-01-12 08:37] LABS: ALBUMIN 2.8 g/dl (3.4-5.0); BILIRUBIN,TOTAL 1.1 mg/dL (0.2-1); BLOOD UREA NITROGEN 18.9 mg/dL (7-18); CALCIUM 8.4 mg/dL (8.5-10.1); CREATININE 0.8 mg/dL (0.55-1.3); PHOSPHOROUS 4.2 mg/dL (2.5-4.9); TOT PROT 6.3 g/dl (6.4-8.2)
[2021-01-12] MEDS: VERAPAMIL HCL 120 MG CAP SUSTAINED RELEASE PO SCH (10:12)
[2021-01-12] MEDS ORDERED: WARFARIN NA 1 MG TABLET ONE (11:55)
[2021-01-12] MEDS ORDERED: WARFARIN NA 2 MG TABLET PO ONE (12:00)
[2021-01-12 13:54] VITALS: BP 110/50; PULSE 75
[2021-01-12] MEDS ORDERED: FUROSEMIDE 40 MG TABLET (FP) PO SCH (14:00)
[2021-01-12] MEDS ORDERED: IRON SUCROSE INJECTION 200 MG in SODIUM CHLORIDE 90 ML IVPB ONE (15:00)
[2021-01-12] MEDS ORDERED: GLIMEPIRIDE 1 MG TABLET PO SCH (16:30)
[2021-01-12] MEDS ORDERED: WARFARIN NA 2 MG TABLET PO SCH (18:00)
[2021-01-12] MEDS ORDERED: WARFARIN NA 5 MG TABLET PO SCH (18:00)
== END 2021-01-12 13:52 | disposition home or self-care (01) ==
LOC: JER 12:09 → SUATTDRO 12:09 → JERBED 18:17 → INTOOBSV 18:17 → UNDOADMOB 18:17 → JERBED 01-12 13:35
PROVIDERS: ADMIT Internal Medicine; ATTEND Internal Medicine
PROC: 3E033GC Introduction of Other Therapeutic Substance into Peripheral Vein, Percutaneous Approach (ICD-10-PCS; principal; 2021-01-12)
DX: I25.10 Atherosclerotic heart disease of native coronary artery without angina pectoris (principal); I48.91 Unspecified atrial fibrillation; E78.5 Hyperlipidemia, unspecified; I10 Essential (primary) hypertension; R60.0 Localized edema; R06.00 Dyspnea, unspecified; I08.0 Rheumatic disorders of both mitral and aortic valves; D64.9 Anemia, unspecified
CPT/HCPCS: 36415; 71045-TC-FY; 80053; 81003; 82550; 82728; 82962; 83540; 83550; 83735; 83880; 84100; 84439; 84443; 84484; 85025; 85610; 85730; 87086; 93005; 93010; 96374; 96375; 96376; 99285-25; C9803; G0378; U0003; U0005

== ENCOUNTER 2021-02-09 16:47 | Emergency (ER) | payer OTHER ==
[2021-02-09] MEDS ORDERED: ACETAMINOPHEN 1000 MG/100 ML VIAL IVPB ONE (17:41)
[2021-02-09] MEDS ORDERED: ACETAMINOPHEN INJECTION 100 ML IVPB ONE (17:55)
[2021-02-09 17:58] VITALS: BP 115/90; PULSE 99; TEMP 98; BMI 32.6
[2021-02-09 18:01] LABS: BASO % 2.3 % (0-2.0); EOS % 0.5 % (0-4.5); HEMATOCRIT 32.8 % (32.4-45.2); HEMOGLOBIN 10.5 GM/dl (10.7-15.3); LYMPH % 4.5 % (8-40); MCH 27.9 pg (25.7-33.7); MCHC 32.1 g/dl (32.0-36.0); MEAN CELL VOLUME 86.9 fl (80-96); MEAN PLT VOLUME 7.6 fl (7.5-11.1); MONO % 5.6 % (3.8-10.2); NEUT % 87.1 % (42.8-82.8); PLATELET COUNT 139 10^3/uL (134-434); RBC 3.78 M/mm3 (3.60-5.2); WHITE BLOOD COUNT 5.9 K/mm3 (4.0-10.8)
[2021-02-09 18:04] LABS: EPITHELIAL CELLS FEW /hpf
[2021-02-09 18:18] LABS: ACTIVATED PTT 43.6 SECONDS (25.2-36.5)
[2021-02-09 18:22] LABS: BILIRUBIN,TOTAL 0.9 mg/dl (0.2-1); CALCIUM 8.1 mg/dl (8.5-10); CREATININE 0.9 mg/dl (0.55-1.3); TOT PROT 6.2 g/dl (6.4-8.2)
[2021-02-09 18:23] LABS: INR 3.62 (0.82-1.09); PROTHROMBIN TIME (PATIENT) 40.2 SEC (10.2-13.0)
== END 2021-02-09 20:02 | disposition home or self-care (01) ==
LOC: FER 16:47
PROC: 3E033NZ Introduction of Analgesics, Hypnotics, Sedatives into Peripheral Vein, Percutaneous Approach (ICD-10-PCS; principal; 2021-02-09)
DX: R10.9 Unspecified abdominal pain (principal)
CPT/HCPCS: 36415; 74176-TC; 80053; 81003; 81015; 83690; 85025; 85610; 85730; 87086; 99284-25; J0131

== ENCOUNTER 2021-03-07 10:45 | Inpatient (IN) | payer OTHER ==
[2021-03-07] MEDS ORDERED: VANCOMYCIN 1 GM in D5W (PRE-DOCKED) 1,000 MG/250 ML IVPB ONE (11:11)
[2021-03-07] MEDS ORDERED: PIPERACILLIN/TAZOB 4.5 GM 4.5 GM in DEXTROSE 5%-WATER 100 ML IVPB ONE (11:11)
[2021-03-07] MEDS ORDERED: PIPERACILLIN/TAZOBACTAM 4.5 GM VIAL IVPB ONE (11:45)
[2021-03-07] MEDS ORDERED: VANCOMYCIN 1,000 MG VIAL (RESTRICTED TO ID ONLY) ONE (11:45)
[2021-03-07 12:40] LABS: BASO % 0.9 % (0-2.0); EOS % 0.6 % (0-4.5); HEMATOCRIT 32.3 % (32.4-45.2); HEMOGLOBIN 10.6 GM/dl (10.7-15.3); LYMPH % 5.8 % (8-40); MCH 28.3 pg (25.7-33.7); MCHC 32.9 g/dl (32.0-36.0); MEAN CELL VOLUME 85.9 fl (80-96); MEAN PLT VOLUME 7.6 fl (7.5-11.1); MONO % 8.1 % (3.8-10.2); NEUT % 84.6 % (42.8-82.8); PLATELET COUNT 158 10^3/uL (134-434); RBC 3.76 M/mm3 (3.60-5.2); RDW 17.5 % (11.6-15.6); WHITE BLOOD COUNT 4.5 K/mm3 (4.0-10.8)
[2021-03-07 12:42] LABS: ALBUMIN 3.1 g/dl (3.4-5.0); CALCIUM 8.5 mg/dl (8.5-10); CREATININE 0.8 mg/dl (0.55-1.3)
[2021-03-07 12:46] LABS: INR 3.57 (0.82-1.09); PROTHROMBIN TIME (PATIENT) 39.6 SEC (10.2-13.0)
[2021-03-07] MEDS ORDERED: WARFARIN NA 1 MG TABLET PO SCH (14:00)
[2021-03-07] MEDS ORDERED: WARFARIN NA 5 MG TABLET PO SCH ×2 (14:00→22:00)
[2021-03-07] MEDS ORDERED: POTASSIUM CHLORIDE TABS 20 MEQ TABLET.ER (FP) PO ONE ×2 (14:15→14:36)
[2021-03-07 16:48] VITALS: BMI 32.0
[2021-03-07] MEDS: INSULIN (NOVOLOG) ASPART 100 UNITS/ML 10ML VIAL SQ SCH ×2 (17:37→21:43)
[2021-03-07] MEDS ORDERED: WARFARIN NA 2 MG TABLET PO ONE (18:00)
[2021-03-07] MEDS: MELATONIN 5 MG TABLETS PO SCH (21:56)
[2021-03-07] MEDS ORDERED: VERAPAMIL HCL 240 MG PO SCH (22:00)
[2021-03-07] MEDS: VERAPAMIL HCL 120 MG E.R. TABLET PO SCH (23:10)
[2021-03-07] MEDS: ATORVASTATIN CA 20 MG TABLET (FP) PO SCH (23:11)
[2021-03-08] MEDS: FUROSEMIDE 40 MG TABLET (FP) PO SCH ×2 (05:31→13:23)
[2021-03-08] MEDS: INSULIN (NOVOLOG) ASPART 100 UNITS/ML 10ML VIAL SQ SCH ×4 (06:22→22:21)
[2021-03-08 08:18] LABS: BASO % 1.1 % (0-2.0); EOS % 0.9 % (0-4.5); HEMATOCRIT 33.1 % (32.4-45.2); HEMOGLOBIN 10.6 GM/dl (10.7-15.3); LYMPH % 5.3 % (8-40); MCH 27.9 pg (25.7-33.7); MCHC 32.1 g/dl (32.0-36.0); MEAN CELL VOLUME 86.9 fl (80-96); MEAN PLT VOLUME 7.4 fl (7.5-11.1); MONO % 7.3 % (3.8-10.2); NEUT % 85.4 % (42.8-82.8); PLATELET COUNT 145 10^3/uL (134-434); RBC 3.81 M/mm3 (3.60-5.2); RDW 17.9 % (11.6-15.6); WHITE BLOOD COUNT 4.4 K/mm3 (4.0-10.8)
[2021-03-08 08:19] LABS: INR 3.1 (0.82-1.09); PROTHROMBIN TIME (PATIENT) 34.4 SEC (10.2-13.0)
[2021-03-08 08:26] LABS: ALBUMIN 3.2 g/dl (3.4-5.0); BILIRUBIN,TOTAL 0.8 mg/dl (0.2-1); CALCIUM 8.7 mg/dl (8.5-10); CREATININE 0.8 mg/dl (0.55-1.3); MAGNESIUM 1.8 mg/dL (1.8-2.4); TOT PROT 6.2 g/dl (6.4-8.2)
[2021-03-08] MEDS: FERROUS SO4 325 MG TABLET (FP) PO SCH (09:25)
[2021-03-08] MEDS: METHIMAZOLE 5 MG TABLET PO SCH (09:25)
[2021-03-08] MEDS: VERAPAMIL HCL 120 MG E.R. TABLET PO SCH ×2 (09:25→21:10)
[2021-03-08] MEDS ORDERED: PATIENT'S OWN MEDICATION (NON-FORMULARY) (Losartan Potassium [Losartan Potassium] 100 MG T PO SCH (10:00)
[2021-03-08] MEDS ORDERED: PIPERACILLIN/TAZOB 3.375 GM 3.375 GM in SODIUM CHLORIDE 50 ML IVPB SCH (11:30)
[2021-03-08] MEDS ORDERED: PIPERACILLIN/TAZOBACTAM 3.375 GM VIAL IVPB ONE ×2 (11:42→17:13)
[2021-03-08] MEDS ORDERED: SODIUM CHLORIDE 50 ML IVPB ONE ×2 (11:42→17:13)
[2021-03-08] MEDS: LOSARTAN POTASSIUM 50 MG TABLET PO SCH (11:50)
[2021-03-08] MEDS ORDERED: VANCOMYCIN HCL 1,250 MG in SODIUM CHLORIDE 250 ML IVPB SCH (12:00)
[2021-03-08] MEDS: PIPERACILLIN/TAZOB 3.375 GM 3.375 GM in SODIUM CHLORIDE 50 ML IVPB SCH (17:19)
[2021-03-08] MEDS ORDERED: WARFARIN NA 5 MG TABLET PO ONE (18:00)
[2021-03-08] MEDS: ATORVASTATIN CA 20 MG TABLET (FP) PO SCH (21:10)
[2021-03-08] MEDS: MELATONIN 5 MG TABLETS PO SCH (21:10)
[2021-03-09] MEDS: PIPERACILLIN/TAZOB 3.375 GM 3.375 GM in SODIUM CHLORIDE 50 ML IVPB SCH ×2 (02:00→09:44)
[2021-03-09] MEDS ORDERED: PIPERACILLIN/TAZOBACTAM 3.375 GM VIAL IVPB ONE ×2 (04:30→08:57)
[2021-03-09] MEDS ORDERED: SODIUM CHLORIDE 50 ML IVPB ONE ×2 (04:31→08:58)
[2021-03-09] MEDS: FUROSEMIDE 40 MG TABLET (FP) PO SCH (06:16)
[2021-03-09] MEDS: INSULIN (NOVOLOG) ASPART 100 UNITS/ML 10ML VIAL SQ SCH ×2 (06:21→11:44)
[2021-03-09 08:20] LABS: INR 3.48 (0.82-1.09); PROTHROMBIN TIME (PATIENT) 38.6 SEC (10.2-13.0)
[2021-03-09 08:21] LABS: BASO % 1.6 % (0-2.0); HEMATOCRIT 33.3 % (32.4-45.2); HEMOGLOBIN 10.7 GM/dl (10.7-15.3); LYMPH % 7.9 % (8-40); MCH 27.7 pg (25.7-33.7); MCHC 32.1 g/dl (32.0-36.0); MEAN CELL VOLUME 86.2 fl (80-96); MEAN PLT VOLUME 7.5 fl (7.5-11.1); MONO % 7.8 % (3.8-10.2); NEUT % 81.7 % (42.8-82.8); PLATELET COUNT 165 10^3/uL (134-434); RBC 3.87 M/mm3 (3.60-5.2); RDW 17.8 % (11.6-15.6); WHITE BLOOD COUNT 3.7 K/mm3 (4.0-10.8)
[2021-03-09 08:25] LABS: ALBUMIN 3.1 g/dl (3.4-5.0); BILIRUBIN,TOTAL 0.9 mg/dl (0.2-1); CALCIUM 8.6 mg/dl (8.5-10); CREATININE 0.8 mg/dl (0.55-1.3); TOT PROT 6.2 g/dl (6.4-8.2)
[2021-03-09] MEDS: METHIMAZOLE 5 MG TABLET PO SCH (09:44)
[2021-03-09] MEDS: FERROUS SO4 325 MG TABLET (FP) PO SCH (09:44)
[2021-03-09] MEDS: VERAPAMIL HCL 120 MG E.R. TABLET PO SCH (09:44)
[2021-03-09 10:01] VITALS: TEMP 98.1
[2021-03-09] MEDS ORDERED: PIPERACILLIN/TAZOB 3.375 GM 3.375 GM in SODIUM CHLORIDE 50 ML IVPB SCH (11:30)
[2021-03-09] MEDS ORDERED: VANCOMYCIN/WATER 1,250 MG/250 ML BAG IVPB SCH (12:00)
[2021-03-09] MEDS: LOSARTAN POTASSIUM 50 MG TABLET PO SCH (12:16)
[2021-03-09 12:25] VITALS: BP 152/83; PULSE 84
[2021-03-09] MEDS ORDERED: WARFARIN NA 2 MG TABLET PO ONE (18:00)
== END 2021-03-09 12:42 | disposition home or self-care (01) | DRG 603 ==
LOC: FER 10:45 → FM/S 15:43
PROVIDERS: ADMIT Internal Medicine; ATTEND Nurse Practitioner Acute Care
DX: L03.115 Cellulitis of right lower limb (principal); I50.32 Chronic diastolic (congestive) heart failure; I11.0 Hypertensive heart disease with heart failure; I25.10 Atherosclerotic heart disease of native coronary artery without angina pectoris; Z95.2 Presence of prosthetic heart valve; E11.9 Type 2 diabetes mellitus without complications; Z79.84 Long term (current) use of oral hypoglycemic drugs; E78.5 Hyperlipidemia, unspecified; I48.91 Unspecified atrial fibrillation; Z79.01 Long term (current) use of anticoagulants; E87.6 Hypokalemia
CPT/HCPCS: 36415; 73701-TC-RT; 80053; 82962; 83735; 84484; 85025; 85610; 85730; 87040; 87070; 87186; 87205; 93005; 97116-GP; 97162-GP; 99285-25; C9803; Q9967; U0003; U0005